=== PATIENT | female | born 1985 | race Caucasian/White ===

== ENCOUNTER 2024-03-25 11:44 | Emergency (ER) | payer OTHER, SELFPAY ==
[2024-03-25 11:53] VITALS: BP 120/84; PULSE 91; TEMP 37.2; O2SAT 99; BMI 29.0
--- NOTE | 2024-03-25 12:33 | ED_ITS ---
HPI HPI - General Adult General Chief complaint: Dental/Oral Stated complaint: FACIAL SWELLING Time Seen by Provider: 03/25/24 11:58 Source: patient Mode of arrival: walk-in Limitations: no limitations History of Present Illness HPI narrative: 38-year-old female to the emergency department chief complaint of dental pain. Patient reports she noticed some swelling on her right lower jawline today. She has had dental pain has been ongoing for several weeks. She was seen by a dentist in [place] and initially had work done however was not completed. She has an appointment for tomorrow. She has been on Augmentin. She did not finish and just restarted it. She denies any fever, sweats, chills. Related Data Home Medications ?Medication ?Instructions ?Recorded ?Confirmed aripiprazole 5 mg tablet 5 mg PO DAILY 03/25/24 03/25/24 cholecalciferol (vitamin D3) 125 125 mcg PO DAILY 03/25/24 03/25/24 mcg (5,000 unit) capsule duloxetine 60 mg capsule,delayed 60 mg PO DAILY 03/25/24 03/25/24 release metformin 500 mg tablet,extended 1,000 mg PO DAILY 03/25/24 03/25/24 release 24 hr Previous Rx's ?Medication ?Instructions ?Recorded clindamycin HCl 150 mg capsule 450 mg (3 x 150 mg) PO Q8H 7 days 03/25/24 #63 caps Allergies Allergy/AdvReac Type Severity Reaction Status Date / Time viloxazine [From Qelbree] Allergy Severe Hives Verified 03/25/24 11:59 Opioid HPI Opioid Management Most Recent Opioid Data: No Data to Display Review of Systems ROS Status of ROS 10 or more systems reviewed and unremark able except as noted in history and below Exam Narrative Exam Narrative: VITALS: I have reviewed the triage vital signs. GENERAL: Well developed, well appearing adult in no acute distress. NEURO: Alert and oriented. Moves all extremities. Face is symmetric and expressive. EYES: PERRL. No scleral icterus or conjunctival injection. No discharge. HENT: Normocephalic, atraumatic. Hearing is grossly intact. Nares grossly patent and without discharge. Mucous membranes moist. Right lower jaw swelling, mild in nature. There is some gingival erythema about tooth number 30. No discrete abscess. No evidence of deep space infection. NECK: No JVD. Patient moves neck without restriction. EXTREMITIES: Symmetric muscle bulk. No joint swelling. No clubbing, cyanosis, or deformity. SKIN: Warm and dry. Normal turgor. No rash or lesions appreciated. PSYCH: Mood, affect, and interaction is appropriate to the setting. Constitutional Vital Signs, click to edit/add: Last Vital Signs Temp 98.9 F 03/25/24 11:53 Pulse 91 H 03/25/24 11:53 Resp 16 03/25/24 11:53 BP 120/84 03/25/24 11:53 Pulse Ox 99 03/25/24 11:53 O2 Del Method Room Air 03/25/24 11:53 Course Vital Signs Vital signs: Vital Signs Temperature 98.9 F 03/25/24 11:53 Pulse Rate 91 H 03/25/24 11:53 Respiratory Rate 16 03/25/24 11:53 Blood Pressure 120/84 03/25/24 11:53 Pulse Oximetry 99 03/25/24 11:53 Oxygen Delivery Method Room Air 03/25/24 11:53 Temperature 98.9 F 03/25/24 11:53 Pulse Rate 91 H 03/25/24 11:53 Respiratory Rate 16 03/25/24 11:53 Blood Pressure 120/84 03/25/24 11:53 Pulse Oximetry 99 03/25/24 11:53 Oxygen Delivery Method Room Air 03/25/24 11:53 Medical Decision Making MDM Narrative Medical decision making narrative: 38-year-old female to the emergency department with chief complaint of dental pain. Vital stable, the patient is afebrile. She denies , declines test. There are some mild gingival erythema surrounding a fractured tooth. There are some mild reactive swelling in the soft tissues. No discrete abscess. Will switch her to clindamycin. Follow-up with dentistry tomorrow. Dose of dexamethasone is given for swelling which is likely reactive. Patient agrees with this plan. Return precautions were discussed. All questions were answered. The patient was discharged home. Discharge Plan Discharge Stand Alone Forms: Portal Instructions Chief Complaint: Dental/Oral Clinical Impression: Pain, dental, Dental infection Patient Disposition: Home, Self-Care Time of Disposition Decision: 12:23 Condition: Good Mode of Transportation: Private Vehicle Prescriptions / Home Meds: New clindamycin HCl 150 mg capsule 450 mg PO Q8H 7 Days Qty: 63 0RF No Action metformin 500 mg tablet extended release 24 hr 1,000 mg PO DAILY duloxetine 60 mg capsule,delayed release(DR/EC) 60 mg PO DAILY cholecalciferol (vitamin D3) 125 mcg (5,000 unit) capsule 125 mcg PO DAILY aripiprazole 5 mg tablet 5 mg PO DAILY Print Language: Mauritanian Instructions: Toothache (ED) Additional Instructions: You need to follow-up with your dentist within the next 72 hours. Referrals: Zeferino Benoit DO [Primary Care Provider] - 1 week
[2024-03-25] MEDS: DEXAMETHASONE SOD PHOS 10 MG/ML VIAL PO (12:44)
== END 2024-03-25 12:48 | disposition home or self-care (01) ==
PROVIDERS: Emergency Provider Student in an Organized Health Care Education/Training Program
DX: K04.7 Periapical abscess without sinus (principal); K08.89 Other specified disorders of teeth and supporting structures
CPT/HCPCS: 99283; J1100

== ENCOUNTER 2024-04-20 08:44 | Emergency (ER) | payer OTHER, SELFPAY ==
[2024-04-20 08:50] VITALS: BP 125/75; PULSE 71; TEMP 36.6; O2SAT 100; BMI 29.1
--- NOTE | 2024-04-20 08:59 | ED.DENTAL1 ---
HPI - Dental/Oral General Chief complaint: Dental/Oral Stated complaint: DENTAL PROBLEMS Time Seen by Provider: 04/20/24 08:51 Source: patient Mode of arrival: walk-in History of Present Illness HPI Narrative: 39-year-old female presents to the emergency department for dental issue. She is complaining of pain and swelling to the right lower jaw. She knows that she has bad teeth and she has been trying to get into the dentist. It became swollen last night. No difficulty breathing or swallowing. The pain is moderate and continuous. Related Data Home Medications ?Medication ?Instructions ?Recorded ?Confirmed aripiprazole 5 mg tablet 5 mg PO DAILY 03/25/24 03/25/24 cholecalciferol (vitamin D3) 125 125 mcg PO DAILY 03/25/24 03/25/24 mcg (5,000 unit) capsule duloxetine 60 mg capsule,delayed 60 mg PO DAILY 03/25/24 03/25/24 release metformin 500 mg tablet,extended 1,000 mg PO DAILY 03/25/24 03/25/24 release 24 hr Previous Rx's ?Medication ?Instructions ?Recorded clindamycin HCl 150 mg capsule 450 mg (3 x 150 mg) PO Q8H 7 days 03/25/24 #63 caps acetaminophen 300 mg-codeine 30 mg 1 tab PO Q6H PRN pain 5 days #20 04/20/24 tablet tabs clindamycin HCl 300 mg capsule 300 mg PO Q6H 10 days #40 caps 04/20/24 Allergies Allergy/AdvReac Type Severity Reaction Status Date / Time viloxazine [From Qelbree] Allergy Severe Hives Verified 03/25/24 11:59 Review of Systems ROS Narrative A ten point review of systems is negative except as noted above. Exam Narrative Exam Narrative: Nurses note and vital signs reviewed and patient is not hypoxic. General: The patient appears well and in no apparent distress. Patient is resting comfortably on cart. Skin: Warm, dry, no pallor noted. There is no rash noted. Head: Normocephalic, atraumatic Eye: Normal conjunctiva, no drainage Ears, Nose, Mouth, and Throat: oral mucosa is moist. Swelling present to right lower jaw. No swelling to the floor of her mouth. No bleeding or pus present. Dental caries noted. Cardiovascular: Regular Rate and Rhythm Respiratory: Patient is in no distress, no accessory muscle use, lungs are clear to auscultation, no wheezing, rales or rhonchi Back: non-tender GI: Soft and nontender Musculoskeletal: No joint swelling Neurological: Awake and alert Psychiatric: Cooperative Constitutional Vital Signs, click to edit/add: Last Vital Signs Temp 97.8 F 04/20/24 08:50 Pulse 71 04/20/24 08:50 Resp 16 04/20/24 08:50 BP 125/75 04/20/24 08:50 Pulse Ox 100 04/20/24 08:50 O2 Del Method Room Air 04/20/24 08:50 Course Vital Signs Vital signs: Vital Signs Temperature 97.8 F 04/20/24 08:50 Pulse Rate 71 04/20/24 08:50 Respiratory Rate 16 04/20/24 08:50 Blood Pressure 125/75 04/20/24 08:50 Pulse Oximetry 100 04/20/24 08:50 Oxygen Delivery Method Room Air 04/20/24 08:50 Temperature 97.8 F 04/20/24 08:50 Pulse Rate 71 04/20/24 08:50 Respiratory Rate 16 04/20/24 08:50 Blood Pressure 125/75 04/20/24 08:50 Pulse Oximetry 100 04/20/24 08:50 Oxygen Delivery Method Room Air 04/20/24 08:50 MDM - Dental/Oral MDM Narrative Medical decision making narrative: She was given IM Ancef and prescribed clindamycin and she will follow-up with her dentist. She was provided Tylenol 3 for pain. Treatment diagnosis and follow-up were discussed with the patient. Differential Diagnosis Differential diagnosis: Likely gingival abscess, dental caries, toothache and dental abscess Discharge Plan Discharge Stand Alone Forms: Portal Instructions Chief Complaint: Dental/Oral Clinical Impression: Dental infection Patient Disposition: Home, Self-Care Time of Disposition Decision: 08:57 Condition: Good Mode of Transportation: Private Vehicle Prescriptions / Home Meds: New clindamycin HCl 300 mg capsule 300 mg PO Q6H 10 Days Qty: 40 0RF acetaminophen-codeine 300-30 mg tablet 1 tab PO Q6H PRN (Reason: pain) 5 Days Qty: 20 0RF No Action metformin 500 mg tablet extended release 24 hr 1,000 mg PO DAILY duloxetine 60 mg capsule,delayed release(DR/EC) 60 mg PO DAILY cholecalciferol (vitamin D3) 125 mcg (5,000 unit) capsule 125 mcg PO DAILY aripiprazole 5 mg tablet 5 mg PO DAILY clindamycin HCl 150 mg capsule 450 mg PO Q8H 7 Days Qty: 63 0RF Print Language: Citizen Of [place] Instructions: Dental Abscess (ED) Referrals: [facility] [Primary Care Provider] - 1 week
[2024-04-20] MEDS: CEFAZOLIN SODIUM 1,000 MG, WATER FOR INJECTION,STERILE 2.5 ML IM (09:20)
== END 2024-04-20 09:25 | disposition home or self-care (01) ==
PROVIDERS: Emergency Provider Emergency Medicine
DX: K04.7 Periapical abscess without sinus (principal)
CPT/HCPCS: 99283; J0690

== ENCOUNTER 2025-04-01 19:43 | Outpatient (REF) | payer OTHER, SELFPAY ==
--- OUTSIDE RECORDS SUMMARY | 2024-05-02 11:45 | XMS_ITS ---
Author Organization [facility] Address [address] [place] [address] Care Team Providers Care Heat Treater Apprentice Name Role Phone Jade Regalado Primary Care Provider Kailyn Dugan [phone] Encounters Encounter Location Date Provider Diagnosis [facility] [address] [facility] [place] [place] [address] 05/02/2024 Kailyn Dugan Plan Of Treatment No Information Progress Notes * GOLDEN HOYTOB:[birth year] (39 yo F)Acc No.[id number]:05/02/2024 Patient: NATALIIA ZAMORA Provider: Thee Dugan :1985 A ge:39 Y S ex:Female Date:05/02/2024 Address:[address] [place], [place] [id number] Pcp:Jade Regalado Subjective: * Chief Complaints: * * Medical History: Objective: * Vitals: Assessment: Plan: * Treatment: * Images: * Electronic signature of Naveen Dugan on 04/01/2025 at 02:44 PM EDT Sign off status: Pending * Provider: Thee Dugan Date: 05/02/2024 Generated for Mariyai ng/Fabriandag/eTransmitting on: 04/01/2025 02:44 PM EDT
--- OUTSIDE RECORDS SUMMARY | 2024-05-23 11:20 | XMS_ITS ---
Author Organization [facility] Address [address] [place] [address] Care Team Providers Care Slag Dumper Name Role Phone Jade Regalado Primary Care Provider Dr. Mo Jones [facility] [phone] REASON FOR VISIT EXAM Encounters Encounter Location Date Provider Diagnosis [facility] [address] [facility] [place] [address] 05/23/2024 Mo Jones Plan Of Treatment No Information Progress Notes * GOLDEN HOYTOB:[birth year] (39 yo F)Acc No.[id number]:05/23/2024 Patient: NATALIIA ZAMORA Provider: Juan F Jones DDS :1985 A ge:39 Y S ex:Female Date:05/23/2024 Address:[address] [place], [place] [phone] Pcp:Jade Regalado Subjective: * Chief Complaints: * 1 . EXAM. * Medical History: Objective: * Vitals: Assessment: Plan: * Treatment: * Images: * Electronic signature of Dr. Mo Jones , DMD on 04/01/2025 at 02:44 PM EDT Sign off status: Pending * Provider: Juan F Jones DDS Date: 0 05/23/2024 Generated for Ratna chaparro/Sheyla/eTransmitting on: 04/01/2025 02:44 PM EDT
--- OUTSIDE RECORDS SUMMARY | 2025-04-01 15:00 | XMS_ITS | Encounter Summary ---
Author Organization [facility] Address [address] [place] [address] Care Team Providers Care Entry Level Assistant Manager Name Role Phone Unavailable Primary Care Provider Unavailabl e Reason for Referral * Medications - Closed Specialty Diagnoses / Procedures Referred By Jonathan napier Referred To Contact Diagnoses Acne, unspecified acne type Karli Luis PA [address] [place] [address] [place] [address] Phone: tel: fax: Referral ID Status Reason Start Date Expiration Date Visits Re quested Visits Authorized [id number] Closed 1 1 Reason for Visit * Reason Comments Well Women Visit Encounter Details Date Type Department Care Team (Late st Contact Info) Description 04/01/2025 3:00 PM EDT Office Visit [facility] [address] [place] [address] Karli Luis PA [address] [place] [address] [place] [address] Acne, unspecified acne type (Primary Dx); Well woman exam with routine gynecological exam; Breast cancer screening by mammogram Social History Tobacco Use Types Packs/Day Years Used Date Smoking Tobacco: Never Assessed Comments Unknown Sex and Gender Information Value Date Recorded Sex Assigned at Not on file Legal Sex Female 8:28 PM EDT Gender Identity Not on file Sexual Orientation Not on file documented as of this encounter Last Filed Vital Signs Vital Sign Reading Time Taken Comments Blood Pressure 120/74 04/01/2025 2:57 PM EDT Pulse - - Temperature - - Respiratory Rate - - Oxygen Saturation - - Inhaled Oxygen Concentration - - Weight 79.6 kg (175 lb 6.4 oz) 04/01/2025 2:57 P M EDT Height - - Body Mass Index - - documented in this encounter Progress Notes * JENNA Musa - 04/01/2025 3:00 PM EDT Reason for Appointment: Patient ID: Comfort Renteria is a 39 y.o. female who presents for Well Women Visit Patient presents today for Annual Exam. MEDICATIONS Current Outpatient Medications Medication Instructions amphetamine-dextroamphetamine XR (Adderall XR) 20 MG 24 hr capsule 20 mg, Every morning ARIPiprazole (ABILIFY) 5 mg, Daily escitalopram (LEXAPRO) 10 mg, Every morning ALLERGIES No Known Allergies PROBLEMS Active Ambulatory Problems Diagnosis Date Noted No Active Ambulatory Problems Resolved Ambulatory Problems Diagnosis Date Noted No Resolved Ambulatory Problems Past Medical History: Diagnosis Date Miscarriage ([facility] HISTORY PAST MEDICAL HISTORY SOCIAL HISTORY Past Medical History: Diagnosis Date Miscarriage ([facility]) Social History Tobacco Use Smoking status: Not on file Smokeless tobacco: Not on file Substance Use Topics Alcohol use: Not on file Drug use: Not on file FAMILY HISTORY No family history on file. SURGICAL HISTORY Past Surgical History: Procedure Laterality Date D&C FIRST TRIMESTER / TX INCOMPLETE / MISSED / SEPTIC / INDUCED REVIEW OF SYSTEMS Review of Systems: Review of Systems Constitutional: Negative. HENT: Negative. Eyes: Negative. Respiratory: Negative. Cardiovascular: Negative. Gastrointestinal: Negative. Genitourinary: Negative. Musculoskeletal: Negative. Skin: Negative. Neurological: Negative. All other systems reviewed and are negative. Hematological: Negative. Endocrine: Negative. Allergic/Immunologic: Negative. OBJECTIVE Objective: Physical Exam Constitutional: Appearance: Normal appearance. Genitourinary: Right Adnexa: not tender and no mass present. Left Adnexa: not tender and no mass present. No cervical discharge. Breasts: Breasts are soft. Right: Normal. Left: Normal. HENT: Head: Normocephalic. Nose: Nose normal. Mouth/Throat: Mouth: Mucous membranes are moist. Cardiovascular: Rate and Rhythm: Normal rate. Pulmonary: Effort: Pulmonary effort is normal. Abdominal: General: Bowel sounds are normal. Palpations: Abdomen is soft. Musculoskeletal: General: Normal range of motion. Cervical back: Normal range of motion. Neurological: General: No focal deficit present. Mental Status: She is alert. Skin: General: Skin is warm and dry. Findings: Rash present. Comments: Cystic acne on face Psychiatric: Mood and Affect: Mood normal. Vitals and nursing note reviewed. Exam conducted with a ice platform supervisor present. Vitals: There is no height or weight on file to calculate BMI. BP: 120/74 No LMP recorded (within months). ASSESSMENT & PLAN ICD-10-CM 1. Well woman exam with routine gynecological exam Z01.419 THIN PREP TIS PAP AND HR HPV DNA 2. Breast cancer screening by mammogram Z12.31 Bilateral screening mammogram Bilateral screening mammogram Annual Exam: Patient presents today for an annual exam. Patient states she is doing well and has no complaints. Pap was obtained without difficulty. Pt states she has acne from respirator at work, we will send inkeflex and then epiduo to help alleviate symptoms Orders Placed This Encounter Procedures Bilateral screening mammogram Follow Up: Patient is to return in one year for annual unless needed otherwise. Documented by JENNA Musa on behalf of: JENNA Musa documented in this encounter Plan of Treatment Upcoming Encounters Date Type Department Care Team (Late st Contact Info) Description 04/07/2026 3:00 PM EDT Procedure Visit [facility] [address] [facility] [place] [address] Karli Luis PA [address] [facility] [place] [address] Scheduled Orders Name Type Priority Associated Diagnoses Orde r Schedule Bilateral screening mammogram Imaging Routine Breast cancer screening by mammogram Expected: 04/01/2025 (Approximate), Expires: 06/02/2026 THIN PREP TIS PAP AND HR HPV DNA Pathology and Cytology Routine Well woman exam with routine gynecological exam Ordered: 04/01/2025 documented as of this encounter Visit Diagnoses Diagnosis Acne, unspecified acne type- Primary Well woman exam with routine gynecological exam Routine gynecological examination Breast cancer screening by mammogram documented in this encounter
--- OUTSIDE RECORDS SUMMARY | 2025-04-01 19:47 | XMS_ITS | Encounter Summary ---
Author Organization [facility] Address [address] [facility] [place] [address] Care Team Providers Care Cloth Picker Name Role Phone Unavailable Primary Care Provider Unavailabl e Encounter Details Date Type Department Care Team (Late st Contact Info) Description 04/01/2025 Telephone [facility] [address] [place] [address] Karlee Quintanilla MA [address] [facility] [place] [address] Social History Tobacco Use Types Packs/Day Years Used Date Smoking Tobacco: Never Assessed Comments Unknown Sex and Gender Information Value Date Recorded Sex Assigned at Not on file Legal Sex Female 8:28 PM EDT Gender Identity Not on file Sexual Orientation Not on file documented as of this encounter Miscellaneous Notes * Telephone Encounter - Karlee Quintanilla MA - 04/01/2025 3:54 PM EDT Tiffanie called and advised the keflex sent in for 14 days does not match the quantity. The Quantitywas for 21 and its stated in direction TID for 14 days. Pharmacist asking for a new rx sent in please. I sent in the new Keflex rx for TID x 14 days total of 42 tablets. documented in this encounter Plan of Treatment Upcoming Encounters Date Type Department Care Team (Late st Contact Info) Description 04/07/2026 3:00 PM EDT Procedure Visit [facility] [address] [facility] [address] Karli Luis PA [address] [facility] [place] [address] documented as of this encounter Visit Diagnoses Diagnosis Acne, unspecified acne type documented in this encounter
--- OUTSIDE RECORDS SUMMARY | 2025-04-01 19:47 | XMS_ITS | Clinical Summary ---
Author Organization [employer] [facility] tem Address [id number] [address] [place] [address] Care Team Providers Care Statistical Machine Servicer Name Role Phone Services, [facility] Primary Care Provider Allergies No known active allergies Medications * This document contains information received from the source organization and may not represent a complete record from that organization. fluticasone (FLONASE) 50 mcg/actuation nasal spray 8 Active amphetamine-dextro amphetamine XR (ADDERALL XR) 20 mg 24 hr capsuleIndications :ADHD (attention deficit hyperactivity disorder), inattentive type Take 1 capsule (20 mg total) by mouth daily Earliest Fill Date: 08/24/18. Max Daily Amount: 20 mg 30 capsule 8 Active Active Problems Problem Noted Date Diagnosed Date Major depressive disorder, recurrent episode, mo derate 12/12/2017 ADHD (attention deficit hype ractivity disorder), inattentive type 12/12/2017 Social History Tobacco Use Types Packs/Day Years Used Date Smoking Tobacco: Never Assessed Childcare Answer Date Recorded Childcare Unknown 02/21/2019 Employment Answer Date Recorded Employment Unknown 02/21/2019 Purpose - Life Answer Date Recorded Purpose and direction in life Unknown Comments Unknown Sex and Gender Information Value Date Recorded Sex Assigned at Not on file Legal Sex Female 11:22 AM EDT Gender Identity Not on file Sexual Orientation Not on file Plan of Treatment Health Maintenance Due Date Last Done Comments Depression Screening 1996 Tobacco Screening 1996 Adult BMI Screening 2002 DTaP,Tdap and Td Vaccines (1 - Tdap) 2003 Pap Smear 2005 Influenza Vaccine 05/13/2025 08/20/2018 Medical Devices Not on file Insurance [employer] Care Teams Statistical Machine Servicer Relationship Specialty Start Date End Date Services, [facility] [address] [place] [place] PCP - General Family Medicine 11/16/17
--- OUTSIDE RECORDS SUMMARY | 2025-04-01 19:47 | XMS_ITS | Clinical Summary ---
Author Organization [facility] Address [address] [place] [address] Care Team Providers Care Meeting/Event Planner Name Role Phone Unavailable Primary Care Provider Unavailabl e Allergies No known active allergies Medications escitalopram (Lexapro) 10 MG tablet Take 10 mg by mouth in the morning. 02/19/20 25 Active amphetamine-dextr oamphetamine XR (Adderall XR) 20 MG 24 hr capsule Take 20 mg by mouth in the morning. 03/25/20 25 Active ARIPiprazole (Abilify) 5 MG tablet Take 5 mg by mouth Daily 01/24/20 25 Active Adapalene-Benzoyl Peroxide 0.1-2.5 % gelIndications:Ac ne, unspecified acne type Apply pea-size amount to T-zone, chin and problem areas nightly. 45 g 1 04/01/20 25 Active cephalexin (Keflex) 500 MG capsuleIndication s:Acne, unspecified acne type Take 1 capsule (500 mg) by mouth in the morning and 1 capsule (500 mg) in the evening and 1 capsule (500 mg) before bedtime. Do all this for 14 days. 42 capsule 04/01/20 25 025 Active cephalexin (Keflex) 500 MG capsuleIndication s:Well woman exam with routine gynecological exam Take 1 capsule (500 mg) by mouth in the morning and 1 capsule (500 mg) in the evening and 1 capsule (500 mg) before bedtime. Do all this for 14 days. 20 capsule 04/01/20 25 025 Discontinued Encounters Date Type Department Care Team Description 04/01/2025 3:00 PM EDT Office Visit [facility] [address] [facility] [place] [address] Karli Luis PA Acne, unspecified acne type (Primary Dx); Well woman exam with routine gynecological exam; Breast cancer screening by mammogram 04/01/2025 Telephone [facility] [address] [place], [place] [address] [address] Karlee Quintanilla SHAHBAZ 04/01/2025 Bamboo flowsheet [facility] [address] [place] [address] Karli Luis PA from Last 3 Months Social History Tobacco Use Types Packs/Day Years Used Date Smoking Tobacco: Never Assessed Comments Unknown Sex and Gender Information Value Date Recorded Sex Assigned at Not on file Legal Sex Female 8:28 PM EDT Gender Identity Not on file Sexual Orientation Not on file Last Filed Vital Signs Vital Sign Reading Time Taken Comments Blood Pressure 120/74 04/01/2025 2:57 PM EDT Pulse - - Temperature - - Respiratory Rate - - Oxygen Saturation - - Inhaled Oxygen Concentration - - Weight 79.6 kg (175 lb 6.4 oz) 04/01/2025 2:57 P M EDT Height - - Body Mass Index - - Plan of Treatment Upcoming Encounters Date Type Department Care Team (Late st Contact Info) Description 04/07/2026 3:00 PM EDT Procedure Visit [facility] [address] [place] [address] Karli Luis PA [address] [place] [address] [place] [address] Insurance [employer]
--- OUTSIDE RECORDS SUMMARY | 2025-04-01 19:47 | XMS_ITS | CCD ---
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 Name Role Phone BIA, DR OCHOA Consulting Unavailable BIA, DR OCHOA Admitting Unavailable BIA, DR OCHOA Attending Unavailable BIA, DR OCHOA Primary Care Unavailable BIA, DR OCHOA Admitting Unavailable BIA, DR OCHOA Attending Unavailable BIA, DR OCHOA Consulting Unavailable BIA, DR OCHOA Primary Care Unavailable BIA, DR OCHOA Admitting Unavailable BIA, DR OCHOA Attending Unavailable PAUL CHAPA Consulting Unavailable BIA, DR OCHOA Consulting Unavailable BIA, DR OCHOA Admitting Unavailable BIA, DR OCHOA Attending Unavailable ZIEBER, DR LEXI Leyva Consulting Unavailable Mattie New Unavailable Horace Sauceda Unavailable Philly Dennison Attending Unavailable Philly Dennison Primary Care Unavailable Philly Dennison Admitting Unavailable Unavailable Primary Care Provider Unavailabl e Medications Current Medications Medication Drug Class(es) Dates Sig (Normalized) Sig (Original) adapalene 0.001 mg/mg / benzoyl peroxide 0.025 mg/mg topical gel (2 sources) Retinoid Start: 04-01-2025 Adapalene-Benzoyl Peroxide 0.1-2.5 % gel Indications: Acne, unspecified acne type Apply pea-size amount to T-zone, chin and problem areas nightly. 45 g 1 04/01/2025 Active 24 hr amphetamine aspartate 5 mg / amphetamine sulfate 5 mg / dextroamphetamine saccharate 5 mg / dextroamphetamine sulfate 5 mg extended release oral capsule (15 sources) Central Nervous System Stimulant Start: 03-25-2025 take 1 capsule by mouth in the morning, then take 1 capsule by mouth every twenty-four hours amphetamine-dextr oamphetamine XR (Adderall XR) 20 MG 24 hr capsule Take 20 mg by mouth in the morning. 03/25/2025 Active take 1 capsule by mo uth every twenty-four hours Adderall XR 15 MG 1 capsule in the morning Orally Once a day Active ARIPiprazole 5 mg oral tablet (15 sources) Atypical Antipsychotic Start: 01-23-2025 take 1 tablet by mouth once daily ARIPiprazole (Abilify) 5 MG tablet Take 5 mg by mouth Daily 01/23/2025 Active take 1 tablet by janae every twenty-four hours Abilify 5 MG 1 tablet Orally Once a day Active cephalexin 500 mg oral capsule (2 sources) Cephalosporin Antibacterial Start: 04-01-2025 End: 04-15-2025 take 1 capsule by mouth in the morning, then take 1 capsule by mouth in the evening, then take 1 capsule by mouth at bedtime cephalexin (Keflex) 500 MG capsule Indications: Well woman exam with routine gynecological exam Take 1 capsule (500 mg) by mouth in the morning and 1 capsule (500 mg) in the evening and 1 capsule (500 mg) before bedtime. Do all this for 14 days. 20 capsule 04/01/2025 04/15/2025 Active DULoxetine 60 mg delayed release oral capsule (13 sources) Serotonin and Norepinephrine Reuptake Inhibitor take 1 capsule by mouth every twenty-four hours Cymbalta 60 MG 1 capsule Orally Once a day Active escitalopram 10 mg oral tablet (2 sources) Serotonin Reuptake Inhibitor Start: 02-18-2025 take 1 tablet by mouth in the morning escitalopram (Lexapro) 10 MG tablet Take 10 mg by mouth in the morning. 02/18/2025 Active ferrous sulfate 325 mg oral tablet (11 sources) take 1 tablet by mouth every twenty-four hours Iron 325 (65 Fe) MG 1 tablet Orally Once a day Active 3 ml liraglutide 6 mg/ml pen injector (8 sources) GLP-1 Receptor Agonist Start: 02-09-2022 inject 1.8 mg by subcutaneous injection once daily Victoza 18 MG/3ML 1.8 mg Subcutaneous daily for 30 day(s) January, Active Start: 01-19-2022 Saxenda 18 MG/ 3ML 0.6 mg and may increase to 1.2 mg Subcutaneous once daily for 30 day(s) January, Active 24 hr metFORMIN hydrochloride 500 mg extended release oral tablet (10 sources) Biguanide Start: 10-29-2021 take 1 tablet by mouth every twenty-four hours metFORMIN HCl ER 500 MG 1 tablet with breakfast Orally Once a day for 30 day(s) Oct, Active Multivitamin preparation (11 sources) take 1 tablet by mouth once daily Multivitamin - 1 tablet Orally Once a day Active Completed/Discontinued Medications Medication Drug Class(es) Dates Sig (Normalized) Sig (Original) Vitamin B12 1000 MCG (11 sources) take 1 tablet by jaane once daily Vitamin B12 1000 MCG 1 tablet Orally Once a day for 30 day(s) Not-Taking take 1 tablet by mouth once edmar y Vitamin B12 1000 MCG 1 tablet Orally Once a day for 30 day(s) Active Problems Active Problems Problem Classification Problem Date Documented Date Episodic/Chronic Anxiety disorders (19 sources) Mixed anxiety and depressive disorder; Translations: [Other specified anxiety disorders] Onset: 10-29-2021 Resolved: 05-19-2022 Chronic Attention-deficit, conduct, and disruptive behavior disorders (13 sources) Attention deficit hyperactivity disorder; Translations: [Attention-deficit hyperactivity disorder, unspecified type] Chronic Attention-deficit, conduct, and disruptive behavior disorders (6 sources) Attention-deficit hyperactivity disorder, unspecified type Onset: 10-29-2021 Resolved: 05-19-2022 Chronic Deficiency and other anemia (7 sources) Anemia, unspecified; Translations: [ANEMIA UNSPECIFIED] Onset: 07-30-2021 Resolved: 05-19-2022 Episodic Deficiency and other anemia (11 sources) Anemia; Translations: [Anemia, unspecified] Episodic Disorders of lipid metabolism (13 sources) Hypercholesterolemia; Translations: [Pure hypercholesterolemia, unspecified] Onset: 01-19-2022 Resolved: 05-19-2022 Chronic Immunizations and screening for infectious disease (1 source) Encounter for screening for human papillomavirus (HPV); Translations: [ENC SCREENING HUMAN PAPILLOMAVIRUS] Onset: 06-11-2021 Episodic Malaise and fatigue (17 sources) Other fatigue; Translations: [Fatigue] Onset: 10-29-2021 Resolved: 05-19-2022 Episodic Menstrual disorders (5 sources) Excessive and frequent menstruation with regular cycle; Translations: [EXCESS FREQ MENSTRUATION W/REG CYCL] Onset: 06-01-2021 Chronic Other aftercare (1 source) Other mcc (current) drug therapy; Translations: [OTH INTERMEDIATE CURRENT DRUG THERAPY] Onset: 07-30-2021 Episodic Other lower respiratory disease (6 sources) Snoring Onset: 10-29-2021 Resolved: 05-19-2022 Episodic Other lower respiratory disease (11 sources) Snoring; Translations: [Snoring] Episodic Other nutritional; endocrine; and metabolic disorders (9 sources) Obesity, unspecified; Translations: [OBESITY UNSPECIFIED] Onset: 07-30-2021 Resolved: 05-19-2022 Chronic Other nutritional; endocrine; and metabolic disorders (1 source) Body mass index (BMI) 34.0-34.9, adult; Translations: [BODY MASS INDEX BMI 34.0-34.9 ADULT] Onset: 07-30-2021 Chronic Other nutritional; endocrine; and metabolic disorders (20 sources) Obesity; Translations: [Obesity, unspecified] Chronic Other nutritional; endocrine; and metabolic disorders (9 sources) Body mass index 40+ - severely obese; Translations: [Body mass index (BMI) 40.0-44.9, adult] Chronic Other nutritional; endocrine; and metabolic disorders (9 sources) Obese class II; Translations: [Body mass index (BMI) 36.0-36.9, adult] Chronic Other nutritional; endocrine; and metabolic disorders (1 source) Body mass index (BMI) 36.0-36.9, adult Onset: 01-26-2022 Resolved: 01-26-2022 Chronic Other screening for suspected conditions (not mental disorders or infectious disease) (6 sources) Encounter for screening for malignant neoplasm of cervix; Translations: [Patient encounter status] Onset: 05-13-2021 Episodic Other skin disorders (4 sources) Acne; Translations: [Acne, unspecified] 04-01-2025 Episodic Residual codes; unclassified (6 sources) Other specified health status Onset: 10-29-2021 Resolved: 05-19-2022 Episodic Residual codes; unclassified (6 sources) Tobacco use Onset: 10-29-2021 Resolved: 05-19-2022 Episodic Residual codes; unclassified (11 sources) Vegetarian diet; Translations: [Other specified health status] Episodic Residual codes; unclassified (11 sources) Nicotine user; Translations: [Tobacco use] Episodic Substance-related disorders (1 source) Cannabis use, unspecified, uncomplicated; Translations: [CANNABIS USE UNS UNCOMPLICATED] Onset: 07-30-2021 Episodic Unclassified (1 source) Dietary counseling and surveillance; Translations: [Dietary counseling and surveillance] Onset: 07-21-2022 Past or Other Problems Problem Classification Problem Date Documented Da te Episodic/Chronic Other nutritional; endocrine; and metabolic disorders (1 source) Abnormal weight gain Onset: 10-29-2021 Resolved: 10-29-2021 Episodic Results Test Name Value Interpretation Reference Range Facil ity CBC AUTO DIFFon 07-24-2021 BASO # 0.0 103/ul Normal 0.0-0.1 [facility] Comment on above: Performed By: #### C BC #### [facility] [address] [place] [address] Dr. Saji Pacheco Basophils/100 WBC (Bld) 0.4 % Normal 0.2-2.0 [facility] Comment on above: Performed By: #### C BC #### [facility] [address] [place] [address] Dr. Saji Pacheco EO # 0.2 103/ul Normal 0.0-0.7 [facility] Comment on above: Performed By: #### C BC #### [facility] [address] [place] [address] Dr. Saji Pacheco Eosinophils/100 WBC (Bld) 3.7 % Normal 0.9-7.0 [facility] Comment on above: Performed By: #### C BC #### [facility] [address] [place] [address] Dr. Saji Pacheco Erythrocyte distribution width (RBC) [Ratio] 15.7 % Critically high 11.0-15.0 [facility] Comment on above: Performed By: #### C BC #### [facility] [address] [place] [address] Dr. Saji Pacheco Hematocrit (Bld) [Volume fraction] 37.0 % Normal 36.0-48.0 [facility] Comment on above: Performed By: #### C BC #### [facility] [address] [place] [address] Dr. Saji Pacheco Hemoglobin (Bld) [Mass/Vol] 11.3 g/dL Critically low 12.0-16.0 [facility] Comment on above: Performed By: #### C BC #### [facility] [address] [place] [address] Dr. Saji Pacheco IG # 0.01 10e3/ul Normal 0.00-0.03 [facility] Comment on above: Performed By: #### C BC #### [facility] [address] [place] [address] Dr. Saji Pacheco IG % 0.2 % Normal 0.0-0.5 [facility] Comment on above: Performed By: #### C BC #### [facility] [address] [place] [address] Dr. Saji Pacheco LYMPH # 1.8 103/ul Normal 1.2-3.8 [facility] Comment on above: Performed By: #### C BC #### [facility] [address] [place] [address] Dr. Saji Pacheco Lymphocytes/100 WBC (Bld) 30.9 % Normal 20.5-60.0 [facility] Comment on above: Performed By: #### C BC #### [facility] [address] [place] [address] Dr. Saji Pacheco MANUAL DIFF REQ NO Normal [facility] Comment on above: Performed By: #### C BC #### [facility] [address] [place] [address] Dr. Saji Pacheco MCH (RBC) [Entitic mass] 25.3 pg Critically low 26.7-34.0 [facility] Comment on above: Performed By: #### C BC #### [facility] [address] [place] [address] Dr. Saji Pacheco MCHC (RBC) [Mass/Vol] 30.5 g/dL Normal 29.9-35.2 [facility] Comment on above: Performed By: #### C BC #### [facility] [address] [place] [address] Dr. Saji Pacheco MCV (RBC) [Entitic vol] 83.0 fL Normal 81.0-99.0 [facility] Comment on above: Performed By: #### C BC #### [facility] [address] [place] [address] Dr. Saji Pacheco MONO # 0.6 103/ul Normal 0.3-0.8 [facility] Comment on above: Performed By: #### C BC #### [facility] [address] [address] [address] Saji Pacheco Monocytes/100 WBC (Bld) 11.3 % Normal 1.7-12.0 [facility] Comment on above: Performed By: #### C BC #### [facility] [address] [place] [address] Dr. Saji Pacheco NEUT # 3.0 103/ul Normal 1.4-6.5 [facility] Comment on above: Performed By: #### C BC #### [facility] [address] [place] [address] Dr. Saji Pacheco Neutrophils/100 WBC (Bld) 53.5 % Normal 43.0-75.0 [facility] Comment on above: Performed By: #### C BC #### [facility] [address] [place] [address] Dr. Saji Pacheco Platelet mean volume (Bld) [Entitic vol] 8.9 fL Critically low 9.5-13.5 [facility] Comment on above: Performed By: #### C BC #### [facility] [address] [place] [address] Dr. Saji Pacheco PLT 361 103/ul Normal 150-450 [facility] Comment on above: Performed By: #### C BC #### [facility] [address] [place] [address] Dr. Saji Pacheco RBC 4.46 106/ul Normal 4.20-5.40 [facility] Comment on above: Performed By: #### C BC #### [facility] [address] [place] [address] Dr. Saji Pacheco WBC 5.7 103/ul Normal 4.0-11.0 [facility] Comment on above: Performed By: #### C BC #### [facility] [address] [place], [place] [address] Dr. Saji Pacheco PREG QUANT HCGon 07-24-2021 HCG QUANT 1 mIU/mL Normal [facility] Comment on above: Performed By: #### P REGQNT #### [facility] [address] [place], [place] [address] Dr. Saji Pacheco HCG RANGE SEE BELOW Normal [facility] Comment on above: Result Comment: 5-50 0-1 WEEK 40-300 1-2 WEEKS 100-1,000 2-3 WEEKS 500-6,000 3-4 WEEKS 5,000-200,000 1-2 MONTHS 10,000-100,000 2-3 MONTHS 3,000-50,000 2ND TRIMESTER 1,000-50,000 3RD TRIMESTER Performed By: #### P REGQNT #### [facility] [address] [place], [place] [address] Dr. Saji Pacheco Covid-19 PCR (CVDTB)on SARS-CoV-2 (COVID-19) RNA VEGA+probe Ql (Unsp spec) Not detected Normal NOT DETECTED [facility] Comment on above: Result Comment: This test is not yet approved or cleared by the [place] FDA. When there are no FDA-approved or cleared tests available, and other criteria are met, FDA can make tests available under an emergency access mechanism called an Emergency Use Authorization (EUA). The EUA for this test is supported by the [place] of Health and Human Service's (HHS's) declaration that circumstances exist to justify the emergency use of in vitro diagnostics for the detection and/or diagnosis of the virus that causes COVID-19. This EUA will remain in effect (meaning this test can be used) for the duration of the COVID-19 declaration justifying emergency of IVDs, unless it is terminated or revoked by FDA (after which the test may no longer be used). When diagnostic testing is negative, the possibility of a false negative should be considered in the context of a patient's recent exposures and the presence of clinical signs and symptoms consistent with SARS-CoV-2. Performed By: #### C VDTBH ####[facility] [id number] [place], [place] [address]JiJessica Pacheco US PELVIS AND TRANSVAGon US PELVIS AND TRANSVAG EXAMINATION: US PELVIS AND TRANSVAG HISTORY: Excessive and frequent menstruation COMPARISON: No relevant comparison available. TECHNIQUE: Transabdominal and transvaginal sonographic examination. FINDINGS: UTERUS: Normal size and appearance. Uterus size: 9.0 x 5.0 x 7.5 cm ENDOMETRIUM: Thickened but homogeneous echotexture. Endometrial thickness: 19 mm RIGHT OVARY: Normal size and appearance. Duplex Doppler demonstrates normal waveform and flow; resistive index 0.62. Ovary size: 2.4 x 1.2 x 2.7 cm LEFT OVARY: Normal size and appearance. Duplex Doppler demonstrates normal waveform and flow; resistive index 0.48. Ovary size: 3.5 x 2.2 x 3.0 cm CUL-DE-SAC: Unremarkable. No significant free fluid. BLADDER: Unremarkable. OTHER: None. IMPRESSION: 1. Homogeneous but abnormally thickened endometrium; possible endometrial hyperplasia. Electronically authenticated by: LEXI IRELAND Date: 2021-05-21 08:03 Normal [facility] CBC AUTO DIFFon 05-20-2021 BASO # 0.1 103/ul Normal 0.0-0.1 [facility] Comment on above: Performed By: #### C BC #### [facility] [address] [place] [id number] Jhoan Noemí Basophils/100 WBC (Bld) 0.5 % Normal 0.2-2.0 [facility] Comment on above: Performed By: #### C BC #### [facility] [address] [place] [address] Jhoan Noemí EO # 0.1 103/ul Normal 0.0-0.7 [facility] Comment on above: Performed By: #### C BC #### [facility] [address] [place], [place] [address] Jhoan Noemí Eosinophils/100 WBC (Bld) 0.9 % Normal 0.9-7.0 [facility] Comment on above: Performed By: #### C BC #### [facility] [address] [place], [place] [address] Jhoan Noemí Erythrocyte distribution width (RBC) [Ratio] 14.5 % Normal 11.0-15.0 [facility] Comment on above: Performed By: #### C BC #### [facility] [address] [place] [address] Jhoan Dowd Hematocrit (Bld) [Volume fraction] 33.6 % Critically low 36.0-48.0 [facility] Comment on above: Performed By: #### C BC #### [facility] [address] [place] [address] Jhoan Dowd Hemoglobin (Bld) [Mass/Vol] 10.7 g/dL Critically low 12.0-16.0 [facility] Comment on above: Performed By: #### C BC #### [facility] [address] [place] [address] Jhoan Dowd IG # 0.02 10e3/ul Normal 0.00-0.03 [facility] Comment on above: Performed By: #### C BC #### [facility] [address] [place] [address] Jhoan Dowd IG % 0.2 % Normal 0.0-0.5 [facility] Comment on above: Performed By: #### C BC #### [facility] [address] [place] [address] Jhoan Dowd LYMPH # 2.9 103/ul Normal 1.2-3.8 [facility] Comment on above: Performed By: #### C BC #### [facility] [address] [place] [address] Jhoan Dowd Lymphocytes/100 WBC (Bld) 31.0 % Normal 20.5-60.0 [facility] Comment on above: Performed By: #### C BC #### [facility] [address] [place] [address] Jhoan Dowd MANUAL DIFF REQ NO Normal [facility] Comment on above: Performed By: #### C BC #### [facility] [address] [place] [address] Jhoan Dowd MCH (RBC) [Entitic mass] 25.3 pg Critically low 26.7-34.0 [facility] Comment on above: Performed By: #### C BC #### [facility] [address] [place], [place] [address] Jhoanmonica Dowd MCHC (RBC) [Mass/Vol] 31.8 g/dL Normal 29.9-35.2 [facility] Comment on above: Performed By: #### C BC #### [facility] [address] [id number] Jhoan Noemí MCV (RBC) [Entitic vol] 79.4 fL Critically low 81.0-99.0 [facility] Comment on above: Performed By: #### C BC #### [facility] [address] [id number] Jhoan Noemí MONO # 0.7 103/ul Normal 0.3-0.8 [facility] Comment on above: Performed By: #### C BC #### [facility] [address] [id number] Jhoan Noemí Monocytes/100 WBC (Bld) 7.1 % Normal 1.7-12.0 [facility] Comment on above: Performed By: #### C BC #### [facility] [address] [id number] Jhoan Noemí NEUT # 5.7 103/ul Normal 1.4-6.5 [facility] Comment on above: Performed By: #### C BC #### [facility] [address] [place], [place] [address] Jhoan Noemí Neutrophils/100 WBC (Bld) 60.3 % Normal 43.0-75.0 [facility] Comment on above: Performed By: #### C BC #### [facility] [address] [place], [place] [address] Jhoan Noemí Platelet mean volume (Bld) [Entitic vol] 9.3 fL Critically low 9.5-13.5 [facility] Comment on above: Performed By: #### C BC #### [facility] [address] [id number] Jhoan Noemí PLT 332 103/ul Normal 150-450 [facility] Comment on above: Performed By: #### C BC #### [facility] [address] [place] [address] Jhoanmonica Dowd RBC 4.23 106/ul Normal 4.20-5.40 [facility] Comment on above: Performed By: #### C BC #### [facility] [address] [place] [address] Jhoan Dowd WBC 9.4 103/ul Normal 4.0-11.0 [facility] Comment on above: Performed By: #### C BC #### [facility] [address] [place], [place] [id number] Jhoan Dowd PREG QUANT HCGon 05-20-2021 HCG QUANT <1 Normal [facility] Comment on above: Performed By: #### P REGQNT, TSH #### [facility] [address] [place] [address] Jhoan Noemí HCG RANGE SEE BELOW Normal [facility] Comment on above: Result Comment: 5-50 0-1 WEEK 40-300 1-2 WEEKS 100-1,000 2-3 WEEKS 500-6,000 3-4 WEEKS 5,000-200,000 1-2 MONTHS 10,000-100,000 2-3 MONTHS 3,000-50,000 2ND TRIMESTER 1,000-50,000 3RD TRIMESTER Performed By: #### P REGQNT, TSH #### [facility] [address] [place] [address] Jhoanmonica Fontanezen PROTIMEon 05-20-2021 INR Coag (PPP) [Relative time] 0.94 {INR} Normal [facility] Comment on above: Performed By: #### P TT, PT #### [facility] [address] [place], [place] [id number] Jhoanmonica Dowd INR GUIDELINES SEE BELOW Normal [facility] Comment on above: Result Comment: MIKE RED INR: 2.0 - 3.0 CONDITIONS NOT LISTED BELOW 2.5 - 3.5 FOR PROSTHETIC HEART VALVE REPLACEMENT 2.5 - 3.5 RECURRENT THROMBOSIS Performed By: #### P TT, PT #### [facility] [address] [place] [address] Jhoanmonica Dowd PT Coag (PPP) [Time] 10.2 s Normal 9.0-11.6 [facility] Comment on above: Performed By: #### P TT, PT #### [facility] [address] [place] [address] Jhoan Dowd PTTon 05-20-2021 aPTT Coag (Bld) [Time] 27.4 s Normal 22.3-36.2 [facility] Comment on above: Performed By: #### P TT, PT #### [facility] [address] [place] [address] Jhoan Dowd TSHon 05-20-2021 TSH 1.434 uIU/mL Normal 0.470-4.680 [facility] Comment on above: Performed By: #### P REGQNT, TSH #### [facility] [address] [place] [address] Jhoan Dowd TSH RANGE SEE BELOW Normal [facility] Comment on above: Result Comment: <0.3 4 UIU/ml HYPERTHYROID 0.34-5.60 UIU/ml EUTHYROID >5.60 UIU/ml HYPOTHYROID Performed By: #### P REGQNT, TSH #### [facility] [address] [place] [address] Jhoan Dowd PAP ACOG PANEL 2: 30 to 65on 05-19-2021 . . Normal [facility] Comment on above: Result Comment: Perf ormed at: WB Performed By: #### [id number] #### [facility] [address] [place] [address] Jhoan Dowd Age Gdln ACOG Testing 30-65 Normal [facility] Comment on above: Performed By: #### [id number] #### [facility] [address] [place], [place] [id number] Jhoan Dowd DIAGNOSIS: Comment Normal [facility] Comment on above: Result Comment: NEGA TIVE FOR INTRAEPITHELIAL LESION OR MALIGNANCY. THIS SPECIMEN WAS RESCREENED PART OF OUR [employer]IP[employer] PROGRAM. Performed at: WB Performed By: #### [id number] #### [facility] [address] [place] [address] Jhoan Dowd HPV Aptima Negative Normal Negative [facility] Comment on above: Result Comment: This nucleic acid amplification test detects fourteen high-risk HPV types (16,18,31,33,35,39,45,51,52,56,58,59,66,68) without differentiation. Performed at: =G Performed By: #### [id number] #### [facility] [address] [place] [address] Jhoan Dowd Methodology: Comment Normal [facility] Comment on above: Result Comment: This liquid based ThinPrep(R) pap test was screened with the use of an image guided system. Performed at: WB Performed By: #### [id number] #### [facility] [address] [place] [address] Jhoan Dowd Note: Comment Normal [facility] Comment on above: Result Comment: The Pap smear is a screening test designed to aid in the detection of premalignant and malignant conditions of the uterine cervix. It is not a diagnostic procedure and should not be used as the sole means of detecting cervical cancer. Both false-positive and false-negative reports do occur. . Performed at: WB Performed By: #### [id number] #### [facility] [address] [place] [address] Jhoan Dowd Performed by: Comment Normal [facility] Comment on above: Result Comment: Karli Palencia, International Project Engineer (ASCP) Performed at: WB Performed By: #### [id number] #### [facility] [address] [place] [address] Jhoan Dowd QC reviewed by: Comment Normal [facility] Comment on above: Result Comment: Yfn Rodriguez, Supervisory International Project Engineer (ASCP) Performed at: WB Performed By: #### [id number] #### [facility] [address] [place] [address] Jhoan Dowd Specimen adequacy: Comment Normal [facility] Comment on above: Result Comment: Sati sfactory for evaluation. Endocervical and/or squamous metaplastic cells (endocervical component) are present. Performed at: WB Performed By: #### [id number] #### [facility] [address] [place] [address] Noemí Vital Signs Date Time Vital Sign Value Performing Clinician Facility 04-01-2025 14:57-0400 Body weight 79.56 kg Karli WEST Work Phone: [facility] 04-01-2025 14:57-0400 Diastolic blood pressure 74 mm[Hg] Karli WEST Work Phone: [facility] 04-01-2025 14:57-0400 Systolic blood pressure 120 mm[Hg] Karli WEST Work Phone: [facility] 07-21-2022 17:00-0500 Body height 170.18 cm Horace Sauceda Other [facility] Other 07-21-2022 17:00-0500 Body mass index (BMI) [Ratio] 36.32 kg/m2 Horace Sauceda Other [facility] Other 07-21-2022 17:00-0500 Body weight 105.19 kg Horace Sauceda Other [facility] Other 07-21-2022 17:00-0500 Diastolic blood pressure 72 mm[Hg] Horace Sauceda Other [facility] Other 07-21-2022 17:00-0500 Respiratory rate 18 /min Horace Sauceda Other [facility] Other 07-21-2022 17:00-0500 SaO2% (BldA) [Mass fraction] 99 % Horace Sauceda Other [facility] Other 07-21-2022 17:00-0500 Systolic blood pressure 106 mm[Hg] Horace Sauceda Other [facility] Other 05-19-2022 17:30-0400 Body height 170.18 cm Horace Sauceda Other [facility] Other 05-19-2022 17:30-0400 Body mass index (BMI) [Ratio] 36.46 kg/m2 Horace Sauceda Other [facility] Other 05-19-2022 17:30-0400 Body weight 105.6 kg Horace Sauceda Other [facility] Other 05-19-2022 17:30-0400 Diastolic blood pressure 79 mm[Hg] Horace Sauceda Other [facility] Other 05-19-2022 17:30-0400 Respiratory rate 18 /min Horace Cobiandiff Other [facility] Other 05-19-2022 17:30-0400 SaO2% (BldA) [Mass fraction] 98 % Horace Cobiandiff Other [facility] Other 05-19-2022 17:30-0400 Systolic blood pressure 114 mm[Hg] Horace Sauceda Other [facility] Other 03-16-2022 16:30-0400 Body height 170.18 cm Horace Sauceda Other [facility] Other 03-16-2022 16:30-0400 Body mass index (BMI) [Ratio] 35.13 kg/m2 Horace Sauceda Other [facility] Other 03-16-2022 16:30-0400 Body weight 101.74 kg Horace Cobiandiff Other [facility] Other 03-16-2022 16:30-0400 Diastolic blood pressure 72 mm[Hg] Horace Cobiandiff Other [facility] Other 03-16-2022 16:30-0400 Respiratory rate 18 /min Horace Cobiandiff Other [facility] Other 03-16-2022 16:30-0400 SaO2% (BldA) [Mass fraction] 99 % Horace Cobiandiff Other [facility] Other 03-16-2022 16:30-0400 Systolic blood pressure 98 mm[Hg] Horace Cobiandiff Other [facility] Other 01-19-2022 16:15-0400 Body height 170.18 cm Horace Sauceda Other [facility] Other 01-19-2022 16:15-0400 Body mass index (BMI) [Ratio] 36.91 kg/m2 Horace Sauceda Other [facility] Other 01-19-2022 16:15-0400 Body weight 106.91 kg Horace Sauceda Other [facility] Other 01-19-2022 16:15-0400 Diastolic blood pressure 81 mm[Hg] Horacealyssa Cobiandiff Other [facility] Other 01-19-2022 16:15-0400 Respiratory rate 18 /min Horace Cobiandiff Other [facility] Other 01-19-2022 16:15-0400 SaO2% (BldA) [Mass fraction] 98 % Horacealyssa Cobiandiff Other [facility] Other 01-19-2022 16:15-0400 Systolic blood pressure 111 mm[Hg] Horace Sauceda Other [facility] Other 12-07-2021 16:30-0400 Body height 170.18 cm Horace Cobiandiff Other [facility] Other 12-07-2021 16:30-0400 Body mass index (BMI) [Ratio] 36.76 kg/m2 Horace Cobiandiff Other [facility] Other 12-07-2021 16:30-0400 Body weight 106.46 kg Horace Cobiandiff Other [facility] Other 12-07-2021 16:30-0400 Diastolic blood pressure 79 mm[Hg] Horace Sauceda Other [facility] Other 12-07-2021 16:30-0400 Respiratory rate 18 /min Horace Sauceda Other [facility] Other 12-07-2021 16:30-0400 SaO2% (BldA) [Mass fraction] 100 % Horace Cobiandiff Other [facility] Other 12-07-2021 16:30-0400 Systolic blood pressure 106 mm[Hg] Horace Cobiandiff Other [facility] Other 10-29-2021 16:15-0500 Body height 170.18 cm Horace Cobiandiff Other [facility] Other 10-29-2021 16:15-0500 Body mass index (BMI) [Ratio] 36.72 kg/m2 Horace Sauceda Other [facility] Other 10-29-2021 16:15-0500 Body weight 106.37 kg Horace Sauceda Other [facility] Other 10-29-2021 16:15-0500 Diastolic blood pressure 74 mm[Hg] Horace Sauceda Other [facility] Other 10-29-2021 16:15-0500 Respiratory rate 18 /min Horace Sauceda Other [facility] Other 10-29-2021 16:15-0500 SaO2% (BldA) [Mass fraction] 100 % Horace Sauceda Other [facility] Other 10-29-2021 16:15-0500 Systolic blood pressure 105 mm[Hg] Horace Sauceda Other [facility] Other Encounters Encounter Date Encounter Type Care Provider Facility Start: 04-01-2025 End: 04-01-2025 Patient encounter procedure Karli WEST Work Phone: [facility] Start: 04-01-2025 End: 04-01-2025 Periodic preventive med est patient 40-64yrs Karli WEST Work Phone: [facility] Comment on above: Acne, unspecified ac ne type (Primary Dx); Well woman exam with routine gynecological exam; Breast cancer screening by mammogram Start: 04-01-2025 End: 04-01-2025 Bamboo flowsheet Karli WEST Work Phone: [facility] Start: 04-01-2025 End: 04-01-2025 Bamboo flowsheet Karil WEST Work Phone: [facility] Start: 07-21-2022 End: 07-22-2022 ambulatory Philly Jesi [facility] Other Start: 07-21-2022 Follow-up encounter Horace mcg[facility] Start: 05-19-2022 End: 05-19-2022 ambulatory Horace Sauceda Other [facility] Other Start: 05-19-2022 Follow-up encounter Horace mcg[facility] Start: 03-16-2022 End: 03-16-2022 ambulatory Horace Sauceda Other [facility] Other Start: 03-16-2022 Follow-up encounter Horace mcg[facility] Start: 03-10-2022 End: 03-10-2022 ambulatory Horace Sauceda Other [facility] Other Start: 03-10-2022 Telephone encounter Horace mcg[facility] Start: 02-16-2022 End: 02-16-2022 ambulatory Horace Sauceda Other [facility] Other Start: 02-16-2022 Telephone encounter Horace mgchee [facility] Start: 02-09-2022 End: 02-09-2022 ambulatory Horace Sauceda Other [facility] Other Start: 02-09-2022 Telephone encounter Horace mcghee [facility] Start: 01-26-2022 End: 01-26-2022 ambulatory Mattie Fitt Other [facility] Other Start: 01-26-2022 IBT FOR OBESITY GROU P 2-10 30M Mattie New [facility] Start: 01-19-2022 End: 01-19-2022 ambulatory Horace Cobiandiff Other [facility] Other Start: 01-19-2022 Follow-up encounter Horace Komal Elizabeth ladiyiss[facility] Start: 12-21-2021 End: 12-21-2021 ambulatory Mattie New Other [facility] Other Start: 12-21-2021 Telephone encounter Mattie garcia [facility] Start: 12-07-2021 End: 12-07-2021 ambulatory Horace Cobiandiff Other [facility] Other Start: 12-07-2021 Follow-up encounter Horace Cobiandiwalter mcghee [facility] Start: 12-07-2021 Telephone encounter Horace Komal Elizabeth eldoradoyissel [facility] Start: 11-02-2021 End: 11-02-2021 ambulatory Mattie New Other [facility] Other Start: 11-02-2021 Telephone encounter Mattie garcia [facility] Start: 10-29-2021 End: 10-29-2021 ambulatory Horace Cobiandiff Other [facility] Other Start: 10-29-2021 Nutrition therapy Horace Sauceda Ekaterina garcia [facility] Start: 07-24-2021 End: 07-24-[address] DON AMEZQUITA Facility:[facility] Start: 07-19-2021 Encounter for other preprocedural examination DR DON AMEZQUITA [facility] Start: 07-14-2021 End: 07-15-[address] DON AMEZQUITA Facility:[facility] Start: 07-14-2021 End: 07-15-2021 Encounter for other preprocedural examination DR DON AMEZQUITA Facility:[facility] Start: 06-01-2021 Encounter for gynecological examination (general) (routine) without abnormal findings DR DON AMEZQUITA [facility] Start: 05-20-2021 End: 05-21-[address] DON AMEZQUITA Facility:[facility] Start: 05-20-2021 End: 05-21-2021 Encounter for gynecological examination (general) (routine) without abnormal findings DR DON AMEZQUITA Facility:[facility] Start: 05-13-2021 End: 05-13-[address] DON AMEZQUITA Facility:[facility] Plan of Treatment Date Care Activity Detail Author Start: 04-01-2025 End: 04-01-2025 Patient encounter procedure 04/01/2025 3:00 PM EDT Office Visit [facility] [address] [address] Karli Luis PA [address] [place] [address] Arrived [facility] Comment on above: Arrived Start: 04-01-2025 End: 06-02-2026 MG Breast - bilateral Screening Bilateral screening mammogram Imaging Routine Breast cancer screening by mammogram Expected: 04/01/2025 (Approximate), Expires: 06/02/2026 [facility] Work Phone: Comment on above: Expected: 04/01/2025 (Approximate), Expires: 06/02/2026 THIN PREP TIS PAP AN D HR HPV DNA THIN PREP TIS PAP AND HR HPV DNA Pathology and Cytology Routine Well woman exam with routine gynecological exam Ordered: 04/01/2025 [facility] Comment on above: Ordered: 04/01/2025 Payers Date Payer Category Payer Self-pay [id number] 2019 Medicaid (Managed Care) [facility] MEDICAID [id number] 1984 Unknown [id number] 1984 Unknown [id number] 1984 Unknown [id number] 1984 Unknown [id number] 1959 Unknown [id number] Unknown [id number] Social History Date Type Detail Facility Unknown if ever smoked [facility] Other Sex Assigned At [facility] Other Start: 1985 Sex Assigned At Female F [facility] Tobacco smoking status [facility] Tobacco smoking consumption unknown [facility] Start: 1985 Sex assigned at Not on file [facility] Medical Equipment Procedure Code Equipment Code Equipment Origin al Text Equipment Identifier Dates Pen Waldron [id number] X 5 MM Start: 02-17-2022 Clinical Notes 07-24-2021 to 04-01-2025 JENNA Musa - 04/01/2025 3:00 PM EDT Note Date & Type Note Facility 04-01-2025 History of Presen t illness Narrative 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 Exam conducted with a tag and label cutter present. Vitals: There is no height or [...] from respirator at work, we will send in keflex and then epiduo to help alleviate symptoms Orders Placed This Encounter Procedures Bilateral screening mammogram Follow Up: Patient is to return in one year for annual unless needed otherwise. Documented by JENNA Musa on behalf of: JENNA Musa documented in this encounter [facility] 07-21-2022 Evaluation note Encounter Date Diagnosis Assessment Notes Jul, Hypercholesterolemia (ICD-10 - E78.00) Jul, Obesity (BMI 35.0-39.9 without comorbidity) (ICD-10 - E66.9) Jul, Snores (ICD-10 - R06.83) Jul, Depression with anxiety (ICD-10 - F41.8) Jul, Vegetarian diet (ICD-10 - Z78.9) Jul, Fatigue (ICD-10 - R53.83) Jul, Anemia (ICD-10 - D64.9) Jul, ADHD (ICD-10 - F90.9) Jul, Nicotine abuse (ICD-10 - Z72.0) [facility] Other 09-07-2022 Evaluation note* Encounter Date Diagnosis Assessment Notes Treatment Notes Treatment Clinical Notes May, Hypercholesterolemia (ICD-10 - E78.00) May, Obesity (BMI 35.0-39 .9 without comorbidity) (ICD-10 - E66.9) May, Snores (ICD-10 - R06.83) May, Depression with anxi ety (ICD-10 - F41.8) May, Vegetarian diet (ICD -10 - Z78.9) May, Fatigue (ICD-10 - R53.83) May, Anemia (ICD-10 - D64.9) May, ADHD (ICD-10 - F90.9) May, Nicotine abuse (ICD- 10 - Z72.0) [facility] Other 07-05-2022 Evaluation note* Encounter Date Diagnosis Assessment Notes Treatment Notes Treatment Clinical Notes Mar, Hypercholesterolemia (ICD-10 - E78.00) Mar, Depression with anxi ety (ICD-10 - F41.8) Mar, Obesity (BMI 35.0-39 .9 without comorbidity) (ICD-10 - E66.9) Mar, Vegetarian diet (ICD -10 - Z78.9) Mar, Snores (ICD-10 - R06.83) Mar, Fatigue (ICD-10 - R53.83) Mar, Anemia (ICD-10 - D64.9) Mar, ADHD (ICD-10 - F90.9) Mar, Nicotine abuse (ICD- 10 - Z72.0) [facility] Other 05-31-2022 Evaluation note* Encounter Date Diagnosis Assessment Notes Treatment Notes Treatment Clinical Notes January, Obesity (BMI 35.0-39.9 without comorbidity) (ICD-10 - E66.9) [facility] Other 05-17-2022 Evaluation note* Encounter Date Diagnosis Assessment Notes Treatment Notes Treatment Clinical Notes January, Obesity, unspecified classification, unspecified obesity type, unspecified whether serious comorbidity present (ICD-10 - E66.9) January, BMI 36.0-36.9,adult (ICD-10 - Z68.36) January, Other Summary of Visi t: (A) Presentation of Plate Method discussed (B) Sample meal ideas reviewed (C) exercise recommendations reviewed Patient set the following goals: - patient set personal goal using given handout. [facility] Other 05-10-2022 Evaluation note* Encounter Date Diagnosis Assessment Notes Treatment Notes Treatment Clinical Notes January, Hypercholesterolemia (ICD-10 - E78.00) January, Depression with anxi ety (ICD-10 - F41.8) January, Obesity (BMI 35.0-39 .9 without comorbidity) (ICD-10 - E66.9) January, Vegetarian diet (ICD -10 - Z78.9) January, Snores (ICD-10 - R06.83) January, Fatigue (ICD-10 - R53.83) January, Anemia (ICD-10 - D64.9) January, ADHD (ICD-10 - F90.9) January, Nicotine abuse (ICD- 10 - Z72.0) January, Other Patient here today for an appointment, Saxenda training completed. Patient cleaned her skin with alcohol pad to administer her first injection for Saxenda 0.6 mg SQ in her left lower quadrant of her abdomen without difficulty. Patient states she is very anxious, I've never given myself an injection before . Pt willing to self- administer first injection. Patient was able to use correct technique. Instructed patient to dose 0.6 mg once a week for 1 week, then may slowly increase dose up to 1.2 mg the following week. Discussed possible side effects and encouraged to maintain a healthy well-balanced diet with exercise. Encouraged to decrease carbonated beverages, regular soda, greasy or high fat/carb foods. Patient is in agreement with plan. All questions answered. No further concerns. Encouraged to return for follow up visit. Instructed to call office with any concerns.15 minutes spent on education with Zulay HENDRICKS, RN. [facility] Other 03-28-2022 Evaluation note* Encounter Date Diagnosis Assessment Notes Treatment Notes Treatment Clinical Notes Nov, Depression with anxiety (ICD-10 - F41.8) Nov, Obesity (BMI 35.0-39.9 without comorbidity) (ICD-10 - E66.9) Nov, Vegetarian diet (ICD-10 - Z78.9) Nov, Snores (ICD-10 - R06.83) Nov, Fatigue (ICD-10 - R53.83) Nov, Anemia (ICD-10 - D64.9) Nov, ADHD (ICD-10 - F90.9) Nov, Nicotine abuse (ICD-10 - Z72.0) [facility] Other 02-17-2022 Evaluation note* Encounter Date Diagnosis Assessment Notes Treatment Notes Treatment Clinical Notes Oct, Abnormal weight gain (ICD-10 - R63.5) Oct, Anemia (ICD-10 - D64.9) Oct, Vegetarian diet (ICD-10 - Z78.9) Oct, Fatigue (ICD-10 - R53.83) Oct, Depression with anxiety (ICD-10 - F41.8) Oct, ADHD (ICD-10 - F90.9) Oct, Nicotine abuse (ICD-10 - Z72.0) Oct, Snores (ICD-10 - R06.83) Oct, Obesity (BMI 35.0-39.9 without comorbidity) (ICD-10 - E66.9) [employer] Other [id number] NoteOPERATIVE NOTE OPERATION DATE: 07-24-21 ANESTHETIC:General. 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 PREOPERATIVE DIAGNOSIS:Menorrhagia. POSTOPERATIVE DIAGNOSIS:Same. PROCEDURE NAME: Mavis ablation with hysteroscopy. FINDINGS: Both ostia seen. No gross evidence of polyps, fibroids, or malignancy. SPECIMEN:None. BLOOD LOSS:5 mL. PROCEDURE: The patient was taken back to the OR where she was prepped and draped in the normal sterile fashion after being placed in the dorsal lithotomy position, after being placed under general anesthesia without difficulty. The anterior lip was grasped with a single tooth tenaculum. The patient was then gently sounds. The patient was gently sounded using Hegar dilators and the hysteroscope was passed through the cervix into the uterus where both ostia were seen. No gross evidence of polyps, fibroids or malignancy. A weighted speculum was placed in the patient's vagina, the anterior tip of the cervix was identified and grasped with a single tooth tenaculum. The patient was gently sounded to roughly 10 cm. The cervical length was noted to be 5 cm. The Mavis ablation apparatus was set to approximately 5 in length. This was placed in through the cervix and into the uterus. After the seal was tested, at that time the total ablation of 120 seconds was performed with the Mavis without difficulty. All instruments were removed from the vagina. [facility] Signed and Approved by: DR DON AMEZQUITA . 07/28/2021 08:36:00[facility] Other Evaluation noteNo assessment information available [facility] Work Phone: Evaluation note* Diagnosis Acne, unspecified acne type- Primary Well woman exam with routine gynecological exam Routine gynecological examination Breast cancer screening by mammogram [facility] N[facility]ative - Reported* Type Description Date Medical History chronic depression Medical History anxiety Medical History ADHD Medical History fatigue Surgical History D&C Surgical History ablasion Surgical History tubes in ears [facility] Other Summary Purpose Family History No Family History Records FoundNo Family History Records Found Advance Directives No Advanced Directives Records FoundNo Advanced Directives Records Found Reason for Referral Reason Appt: [place] of 2 0 Diagnosis 1 Fatigue (R53.83) Referral Organization [facility] Referring Provider First Name Horace Referring Provider Last Name Komal Referring Provider Specialty Internal Me dicine Referred Organization [facility] Referred Address [address] [place] [place], [place],[address] Referred Provider Specialty Sleep Medici ne Referral Priority Routine Additional Source Comments INFORMATION SOURCE (unrecogn ized section and content) DATE CREATED AUTHOR 07/31/2021 [facility] DATE CREATED AUTHOR AUTHOR'S ORGANIZ ATION 06/18/2023 [facility] REASON FOR VISIT (unrecogniz ed section and content) Reason Comments Well Women Visit Goals (unrecognized section and content) Goals may be documented in a n alternate section FOR RECORDS PERTAINING TO PATIENTS WHO ARE OR HAVE BEEN ENROLLED IN A CHEMICAL DEPENDENCY/SUBSTANCEABUSE PROGRAM, SOME INFORMATION MAY BE OMITTED. This clinical summary was aggregated from multiple sources. Caution should be exercised in using it in the provision of clinical care. This summary normalizes information from multiple sources, and as a consequence, information in this document may materially change the coding, format and clinical context of patient data. In addition, data may be omitted in some cases. CLINICAL DECISIONS SHOULD BE BASED ON THE PRIMARY CLINICAL RECORDS. [employer] provides no warranty or guarantee of the accuracy or completeness of information in this document.
--- OUTSIDE RECORDS SUMMARY | 2025-04-01 19:47 | XMS_ITS | Encounter Summary ---
Author Organization [facility] Address [address] [place] [address] Care Team Providers Care Life Skills Teacher Name Role Phone Unavailable Primary Care Provider Unavailabl e Encounter Details Date Type Department Care Team (Late st Contact Info) Description 04/01/2025 Bamboo flowsheet [facility] [address] [place] [id number] Karli Luis PA [address] [place] [address] Dr [place], [facility] Social History Tobacco Use Types Packs/Day Years Used Date Smoking Tobacco: Never Assessed Comments Unknown Sex and Gender Information Value Date Recorded Sex Assigned at Not on file Legal Sex Female 8:28 PM EDT Gender Identity Not on file Sexual Orientation Not on file documented as of this encounter Plan of Treatment Upcoming Encounters Date Type Department Care Team (Late st Contact Info) Description 04/07/2026 3:00 PM EDT Procedure Visit [facility] [address] [place] [address] Karli Luis, PA [address] [place] [address] Dr [place], [place] [id number] documented as of this encounter Visit Diagnoses Not on filedocumented in this encounter
--- OUTSIDE RECORDS SUMMARY | 2025-04-01 19:47 | XMS_ITS | Patient Health Record ---
Author Organization [facility] Address [address] [place] [address] Care Team Providers Care Rotor Coil Taper Name Role Phone Jade Regalado Primary Care Provider Dr. Mo Jones Unavailable [phone] Kailyn Dugan Unavailable [phone] Reason For Referral No Information Encounters Encounter Location Date Provider Diagnosis [facility] [address] [place] [address] 04/23/2024 [facility] [address] [place] [address] 04/26/2024 [facility] [place] [address] 04/25/2024 Mo Jones Encounter for dental examination and cleaning with abnormal findings Z01.21 ; Other dental procedure status Z98.818 ; Dental caries on pit and fissure surface penetrating into dentin K02.52 ; Cracked tooth K03.81 ; Partial loss of teeth, unspecified cause, class I K08.401 and Necrosis of pulp K04.1 Assessments Encounter Date Diagnosis (ICD Code) Assessment Notes Treatment Notes Treatment Clinical Notes Section Notes 04/25/2024 Encounter for dental examination and cleaning with abnormal findings (ICD-10 - Z01.21) 04/25/2024 Other dental procedure status (ICD-10 - Z98.818) 04/25/2024 Dental caries on pit and fissure surface penetrating into dentin (ICD-10 - K02.52) 04/25/2024 Cracked tooth (ICD-10 - K03.81) 04/25/2024 Partial loss of teeth, unspecified cause, class I (ICD-10 - K08.401) 04/25/2024 Necrosis of pulp (ICD-10 - K04.1) Plan Of Treatment No Information Insurance Providers Payer Name Payer Address Payer Phone Subscriber Number Group Number Insured Name Patient Relationship to Insured Coverage Start Date Coverage End Date [employer] [address] [address] [place] [address] [phone] [id number] NATALIIA HOYT Self - patient is the insured 4 [employer] [facility] [place] [address] [place] [address] [phone] [id number] NATALIIA HOYT Self - patient is the insured 4
--- OUTSIDE RECORDS SUMMARY | 2025-04-01 19:47 | XMS_ITS | Clinical Summary ---
Author Organization [facility] Address [address] [place] [address] Care Team Providers Care Contract Lead Name Role Phone Unavailable Primary Care Provider Unavailabl e Social History Tobacco Use Types Packs/Day Years Used Date Smoking Tobacco: Never Assessed [place] Safety & Environment Answer Date Rec orded Fear of Current or Ex-Partner Not on file Emotionally Abused Not on file 11/03/2023 Physically Abused Not on file 11/03/2023 Sexually Abused Not on file 11/03/2023 Physically or Sexually Abused Not on file Comments Unknown Sex and Gender Information Value Date Recorded Sex Assigned at Not on file Legal Sex Female 12:43 AM EDT Gender Identity Not on file Sexual Orientation Not on file Plan of Treatment Not on file
[2025-04-04 16:09] LABS: Age Gdln ACOG Testing Note (.); IGP, Aptima HPV, rfx 16/18,45 Note (.)
== END 2025-04-01 19:44 | disposition home or self-care (01) ==
LOC: LAB 19:43
PROVIDERS: Visit Provider Physician Assistant
DX: Z01.419 Encounter for gynecological examination (general) (routine) without abnormal findings (principal)
CPT/HCPCS: 87624; 88175

== ENCOUNTER 2025-06-13 16:02 | Outpatient (OUT) | payer OTHER, SELFPAY ==
--- OUTSIDE RECORDS SUMMARY | 2025-06-13 19:55 | XMS_ITS | CCD ---
Author Organization [facility] Care Team Providers Care Resident Hall Director Name Role Phone BIA, DR OCHOA Consulting Unavailable BIA, DR OCHOA Admitting Unavailable BIA, DR OCOHA Attending Unavailable BIA, DR OCHOA Primary Care [...] Unavailable ZIEBER, DR LEXI Leyva Consulting Unavailable Matite New Unavailable Horace Sauceda Unavailable Philly Dennison Attending Unavailable Philly Dennison Primary Care Unavailable Philly Dennison Admitting Unavailable Unavailable Primary Care Provider UnavailKARLI Harvey Attending Unavailable Medications Current Medications Medication Drug Class(es) Dates Sig (Normalized) Sig (Original) adapalene 0.001 mg/mg / benzoyl peroxide 0.025 mg/mg topical gel (3 sources) Retinoid Start: 04-01-2025 Adapalene-Benzoyl Peroxide 0.1-2.5 % gel Indications: Acne, unspecified acne type Apply pea-size amount to T-zone, chin and problem areas nightly. 45 g 1 04/01/2025 Active 24 hr amphetamine aspartate 5 mg / amphetamine sulfate 5 mg / dextroamphetamine saccharate 5 mg / dextroamphetamine sulfate 5 mg extended release oral capsule (16 sources) Central Nervous System Stimulant Start: 03-25-2025 take 1 capsule by mouth in the morning, then take 1 capsule by mouth every twenty-four hours amphetamine-dextr oamphetamine XR (Adderall XR) 20 MG 24 hr capsule Take 20 mg by mouth in the morning. 03/25/2025 Active take 1 capsule by mo [facility] every twenty-four hours Adderall XR 15 MG 1 capsule in the morning Orally Once a day Active ARIPiprazole 5 mg oral tablet (16 sources) Atypical Antipsychotic Start: 01-23-2025 take 1 tablet by mouth once daily ARIPiprazole (Abilify) 5 MG tablet Take 5 mg by mouth Daily 01/23/2025 Active take 1 tablet by janae every twenty-four hours Abilify 5 MG 1 tablet Orally Once a day Active cephalexin 500 mg oral capsule (3 sources) Cephalosporin Antibacterial Start: 04-01-2025 End: 04-15-2025 take 1 capsule by mouth in the morning, then take 1 capsule by mouth in the evening, then take 1 capsule by mouth at bedtime cephalexin (Keflex) 500 MG capsule Indications: Acne, unspecified acne type Take 1 capsule (500 mg) by mouth in the morning and 1 capsule (500 mg) in the evening and 1 capsule (500 mg) before bedtime. Do all this for 14 days. 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 [facility] Comment on above: TESTS RESULT FLAG UN ITS REF RANGE LAB Clinician Provided Cytology Information Source.............Cervix;Endocervix No. of containers..01 ThinPrep Vial Age Algo ACOG Elizabeth... 30-65 01 FLAG LEGEND: L-Low Normal,H-High Normal,LL-Alert Low,HH-Alert High <-Panic Low,>-Panic High,A-Abnormal,AA-Critical Abnormal Performed at: 01 =G [address] [id number] Hayley Donato MD, HPV APTIMA Negative Negative [facility] e Comment on above: This nucleic acid am plification test detects fourteen high- risk HPV types (16,18,31,33,35,39,45,51,52,56,58,59,66,68) without differentiation. Performed at: =G - [facility] [address], [place] [id number] Vibration Technician: Hayley Donato MD, Phone: [phone] Performed at: - [facility] [address], [place] [id number] Vibration Technician: Hayley Donato MD, Phone: [phone] IGP, APTIMA HPV, RFX 16/18,45 Note . [facility] Comment on above: TESTS RESULT FLAG UN ITS REF RANGE LAB DIAGNOSIS: 02 NEGATIVE FOR INTRAEPITHELIAL LESION OR MALIGNANCY. CELLULAR CHANGES ASSOCIATED WITH INFLAMMATION ARE PRESENT. Specimen adequacy: 02 Satisfactory for evaluation. Endocervical and/or squamous metaplastic cells (endocervical component) are present. Performed by: Dedrick Carmona, Music Executive (ASCP) . 02 Note: Note 02 The Pap smear is a screening test designed to aid in the detection of premalignant and malignant conditions of the uterine cervix. It is not a diagnostic procedure and should not be used as the sole means of detecting cervical cancer. Both false-positive and false-negative reports do occur. Test Methodology: Note 02 This liquid based ThinPrep(R) pap test was screened with the use of an image guided system. HPV Genotype Reflex Note 02 Criteria not met, HPV Genotype not performed. FLAG LEGEND: L-Low Normal,H-High Normal,LL-Alert Low,HH-Alert High <-Panic Low,>-Panic High,A-Abnormal,AA-Critical Abnormal Performed at: 02 WB [facility] [address] [place] [id number] Hayley Donato MD, BRUSH-SPATULA CERVIX ENDOCERVIX [facility] CBC AUTO DIFFon 07-24-2021 BASO # 0.0 103/ul Normal 0.0-0.1 [facility] Comment on above: Performed By: #### C BC #### [facility] [address] [address] [address] Saji Pacheco Basophils/100 WBC (Bld) 0.4 % Normal 0.2-2.0 [facility] Comment on above: Performed By: #### C BC #### [facility] [address] [address] [address] Saji Pacheco EO # 0.2 103/ul Normal 0.0-0.7 [facility] Comment on above: Performed By: #### C BC #### [facility] [address] [place] [address] Dr. Saji Pacheco Eosinophils/100 WBC (Bld) 3.7 % Normal 0.9-7.0 [facility] Comment on above: Performed By: #### C BC #### [facility] [address] [address] [address] Saji Pacheco Erythrocyte distribution width (RBC) [Ratio] 15.7 % Critically high 11.0-15.0 [facility] Comment on above: Performed By: #### C BC #### [facility] [address] [address] [address] Saji Pacheco Hematocrit (Bld) [Volume fraction] 37.0 % Normal 36.0-48.0 [facility] Comment on above: Performed By: #### C BC #### [facility] [address] [address] [address] Saji Pacheco Hemoglobin (Bld) [Mass/Vol] 11.3 g/dL Critically low 12.0-16.0 [facility] Comment on above: Performed By: #### C BC #### [facility] [address] [address] [address] Saji Pacheco IG # 0.01 10e3/ul Normal 0.00-0.03 [facility] Comment on above: Performed By: #### C BC #### [facility] [address] [address] [address] Saji Pacheco IG % 0.2 % Normal 0.0-0.5 [facility] Comment on above: Performed By: #### C BC #### [facility] [address] [place] [address] Dr. Saji Pacheco LYMPH # 1.8 103/ul Normal 1.2-3.8 [facility] Comment on above: Performed By: #### C BC #### [facility] [address] [place] [address] Dr. Saji Pacheco Lymphocytes/100 WBC (Bld) 30.9 % Normal 20.5-60.0 [facility] Comment on above: Performed By: #### C BC #### [facility] [address] [place] [address] Dr. Saji Pacheco MANUAL DIFF REQ NO Normal [facility] Comment on above: Performed By: #### C BC #### [facility] [address] [place] [address] Dr. Saji Pacheco MCH (RBC) [Entitic mass] 25.3 pg Critically low 26.7-34.0 [facility] Comment on above: Performed By: #### C BC #### [facility] [address] [place] [address] Dr. Saji Pacheco MCHC (RBC) [Mass/Vol] 30.5 g/dL Normal 29.9-35.2 [facility] Comment on above: Performed By: #### C BC #### [facility] [address] [place] [address] Dr. Saji Pacheco MCV (RBC) [Entitic vol] 83.0 fL Normal 81.0-99.0 [facility] Comment on above: Performed By: #### C BC #### [facility] [address] [place] [address] Dr. Saji Pacheco MONO # 0.6 103/ul Normal 0.3-0.8 [facility] Comment on above: Performed By: #### C BC #### [facility] [address] [place] [address] Dr. Saji Pacheco Monocytes/100 WBC (Bld) 11.3 % Normal 1.7-12.0 [facility] Comment on above: Performed By: #### C BC #### [facility] [address] [place] [address] Dr. Saji Pacheco NEUT # 3.0 103/ul Normal 1.4-6.5 [facility] Comment on above: Performed By: #### C BC #### [facility] [address] [place] [address] Dr. Saji Pacheco Neutrophils/100 WBC (Bld) 53.5 % Normal 43.0-75.0 [facility] Comment on above: Performed By: #### C BC #### [facility] [address] [place] [address] Dr. Saji Pacheco Platelet mean volume (Bld) [Entitic vol] 8.9 fL Critically low 9.5-13.5 [facility] Comment on above: Performed By: #### C BC #### [facility] [address] [place] [address] Dr. Saji Pacheco PLT 361 103/ul Normal 150-450 [facility] Comment on above: Performed By: #### C BC #### [facility] [address] [place] [address] Dr. Saji Pacheco RBC 4.46 106/ul Normal 4.20-5.40 [facility] Comment on above: Performed By: #### C BC #### [facility] [address] [place] [address] Dr. Saji Pacheco WBC 5.7 103/ul Normal 4.0-11.0 [facility] Comment on above: Performed By: #### C BC #### [facility] [address] [place] [address] Dr. Saji Pacheco PREG QUANT HCGon 07-24-2021 HCG QUANT 1 mIU/mL Normal [facility] Comment on above: Performed By: #### P REGQNT #### [facility] [address] [place], [place] [address] Dr. Saji Pacheco HCG RANGE SEE BELOW Normal [facility] Comment on above: Result Comment: 5-50 0-1 WEEK 40-300 1-2 WEEKS 100-1,000 2-3 WEEKS 500-6,000 3-4 WEEKS 5,000-200,000 1-2 MONTHS 10,000-100,000 2-3 MONTHS 3,000-50,000 2ND TRIMESTER 1,000-50,000 3RD TRIMESTER Performed By: #### P REGQNT #### [facility] [address] [place], [place] [address] Dr. Saji Pacheco [facility]on SARS-CoV-2 (COVID-19) RNA VEGA+probe Ql (Unsp spec) Not detected Normal NOT DETECTED [facility] Comment on above: Result Comment: This test is not yet approved or cleared by the [place] FDA. When there are no FDA-approved or cleared tests available, and other criteria are met, FDA can make tests available under an emergency access mechanism called an Emergency Use Authorization (EUA). The EUA for this test is supported by the Test Grader of Health and Human Service's (HHS's) declaration [...] with SARS-CoV-2. Performed By: #### C VDTBH ####[facility] [id number] [place], [place] [address]FsDr. Saji Pacheco US PELVIS AND TRANSVAGon US PELVIS [...] LEXI IRELAND Date: 2021-05-21 08:03 Normal [facility] CBC AUTO DIFFon 05-20-2021 BASO # 0.1 103/ul Normal 0.0-0.1 [facility] Comment on above: Performed By: #### C BC #### [facility] [address] [place], [place] [address] Jhoan Noemí Basophils/100 WBC (Bld) 0.5 % Normal 0.2-2.0 [facility] Comment on above: Performed By: #### C BC #### [facility] [address] [place], [place] [address] Jhoan Noemí EO # 0.1 103/ul Normal 0.0-0.7 [facility] Comment on above: Performed By: #### C BC #### [facility] [address] [place], [place] [address] Jhoan Noemí Eosinophils/100 WBC (Bld) 0.9 % Normal 0.9-7.0 [facility] Comment on above: Performed By: #### C BC #### [facility] [address] [place], [place] [address] Jhoan Noemí Erythrocyte distribution width (RBC) [Ratio] 14.5 % Normal 11.0-15.0 [facility] Comment on above: Performed By: #### C BC #### [facility] [address] [place], [place] [id number] Jhoan Noemí Hematocrit (Bld) [Volume fraction] 33.6 % Critically low 36.0-48.0 [facility] Comment on above: Performed By: #### C BC #### [facility] [address] [place] [address] Jhoan Noemí Hemoglobin (Bld) [Mass/Vol] 10.7 g/dL Critically low 12.0-16.0 [facility] Comment on above: Performed By: #### C BC #### [facility] [address] [place] [address] Jhoan Noemí IG # 0.02 10e3/ul Normal 0.00-0.03 [facility] Comment on above: Performed By: #### C BC #### [facility] [address] [place] [address] Jhoan Noemí IG % 0.2 % Normal 0.0-0.5 [facility] Comment on above: Performed By: #### C BC #### [facility] [address] [place] [address] Jhoan Noemí LYMPH # 2.9 103/ul Normal 1.2-3.8 [facility] Comment on above: Performed By: #### C BC #### [facility] [address] [place] [address] Jhoan Noemí Lymphocytes/100 WBC (Bld) 31.0 % Normal 20.5-60.0 [facility] Comment on above: Performed By: #### C BC #### [facility] [address] [place] [address] Jhoanmonica Fontanezen MANUAL DIFF REQ NO Normal [facility] Comment on above: Performed By: #### C BC #### [facility] [address] [place], [place] [id number] Jhoan Noemí MCH (RBC) [Entitic mass] 25.3 pg Critically low 26.7-34.0 [facility] Comment on above: Performed By: #### C BC #### [facility] [address] [place] [address] Jhoan Noemí MCHC (RBC) [Mass/Vol] 31.8 g/dL Normal 29.9-35.2 [facility] Comment on above: Performed By: #### C BC #### [facility] [address] [place], [place] [address] Jhoan Dowd MCV (RBC) [Entitic vol] 79.4 fL Critically low 81.0-99.0 [facility] Comment on above: Performed By: #### C BC #### [facility] [address] [place] [address] Jhoan Dowd MONO # 0.7 103/ul Normal 0.3-0.8 [facility] Comment on above: Performed By: #### C BC #### [facility] [address] [place] [address] Jhoan Dowd Monocytes/100 WBC (Bld) 7.1 % Normal 1.7-12.0 [facility] Comment on above: Performed By: #### C BC #### [facility] [address] [place] [address] Jhoan Dowd NEUT # 5.7 103/ul Normal 1.4-6.5 [facility] Comment on above: Performed By: #### C BC #### [facility] [address] [place] [address] Jhoan Dowd Neutrophils/100 WBC (Bld) 60.3 % Normal 43.0-75.0 [facility] Comment on above: Performed By: #### C BC #### [facility] [address] [place], [place] [id number] Jhoan Dowd Platelet mean volume (Bld) [Entitic vol] 9.3 fL Critically low 9.5-13.5 [facility] Comment on above: Performed By: #### C BC #### [facility] [address] [place] [address] Jhoan Fontanezen PLT 332 103/ul Normal 150-450 [facility] Comment on above: Performed By: #### C BC #### [facility] [address] [place] [address] Jhoanmonica Fontanezen RBC 4.23 106/ul Normal 4.20-5.40 [facility] Comment on above: Performed By: #### C BC #### [facility] [address] [place] [address] Jhoan Dowd WBC 9.4 103/ul Normal 4.0-11.0 [facility] Comment on above: Performed By: #### C BC #### [facility] [address] [place] [address] Jhoan Dowd PREG QUANT HCGon 05-20-2021 HCG QUANT <1 Normal [facility] Comment on above: Performed By: #### P REGQNT, TSH #### [facility] [address] [place] [address] Jhoan Dowd HCG RANGE SEE BELOW Normal [facility] Comment on above: Result Comment: 5-50 0-1 WEEK 40-300 1-2 WEEKS 100-1,000 2-3 WEEKS 500-6,000 3-4 WEEKS 5,000-200,000 1-2 MONTHS 10,000-100,000 2-3 MONTHS 3,000-50,000 2ND TRIMESTER 1,000-50,000 3RD TRIMESTER Performed By: #### P REGQNT, TSH #### [facility] [address] [place] [address] Jhoan Dowd PROTIMEon 05-20-2021 INR Coag (PPP) [Relative time] 0.94 {INR} Normal [facility] Comment on above: Performed By: #### P TT, PT #### [facility] [address] [place] [address] Johan Dowd INR GUIDELINES SEE BELOW Normal [facility] Comment on above: Result Comment: MIKE RED INR: 2.0 - 3.0 CONDITIONS NOT LISTED BELOW 2.5 - 3.5 FOR PROSTHETIC HEART VALVE REPLACEMENT 2.5 - 3.5 RECURRENT THROMBOSIS Performed By: #### P TT, PT #### [facility] [address] [place] [address] Jhoan Dowd PT Coag (PPP) [Time] 10.2 s Normal 9.0-11.6 [facility] Comment on above: Performed By: #### P TT, PT #### [facility] [address] [place] [address] Jhoan Dowd PTTon 05-20-2021 aPTT Coag (Bld) [Time] 27.4 s Normal 22.3-36.2 [facility] Comment on above: Performed By: #### P TT, PT #### [facility] [address] [place] [address] Jhoan Dowd TSHon 05-20-2021 TSH 1.434 uIU/mL Normal 0.470-4.680 [facility] Comment on above: Performed By: #### P REGQNT, TSH #### [facility] [address] [place] [address] Jhoan Dowd TSH RANGE SEE BELOW Normal [facility] Comment on above: Result Comment: <0.3 4 UIU/ml HYPERTHYROID 0.34-5.60 UIU/ml EUTHYROID >5.60 UIU/ml HYPOTHYROID Performed By: #### P REGQNT, TSH #### [facility] [address] [place] [address] Jhoan Dowd PAP ACOG PANEL 2: 30 to 65on 05-19-2021 . . Normal [facility] Comment on above: Result Comment: Perf ormed at: WB Performed By: #### [id number] #### [facility] [address] [place] [address] Jhoan Dowd Age Gdln ACOG Testing 30-65 Normal [facility] Comment on above: Performed By: #### [id number] #### [facility] [address] [place] [address] Jhoan Dowd DIAGNOSIS: Comment Normal [facility] Comment on above: Result Comment: NEGA TIVE FOR INTRAEPITHELIAL LESION OR MALIGNANCY. THIS SPECIMEN WAS RESCREENED PART OF OUR SHOES SALESPERSON PROGRAM. Performed at: WB Performed By: #### [id number] #### [facility] [address] [place] [address] Jhoan Dowd HPV Aptima Negative Normal Negative [facility] Comment on above: Result Comment: This nucleic acid amplification test detects fourteen high-risk HPV types (16,18,31,33,35,39,45,51,52,56,58,59,66,68) without differentiation. Performed at: =G Performed By: #### [id number] #### [facility] [address] [place] [address] Jhoan Dowd Methodology: Comment Normal [facility] Comment on above: Result Comment: This liquid based ThinPrep(R) pap test was screened with the use of an image guided system. Performed at: WB Performed By: #### [id number] #### [facility] [address] [place] [address] Jhoan Dowd Note: Comment Normal [facility] Comment on above: Result Comment: The Pap smear is a screening test designed to aid in the detection of premalignant and malignant conditions of the uterine cervix. It is not a diagnostic procedure and should not be used as the sole means of detecting cervical cancer. Both false-positive and false-negative reports do occur. . Performed at: WB Performed By: #### [id number] #### [facility] [address] [place] [address] Jhoan Dowd Performed by: Comment Normal [facility] Comment on above: Result Comment: Karli Palencia, Fitness Management Director (ASCP) Performed at: WB Performed By: #### [id number] #### [facility] [address] [place] [address] Jhoan Dowd QC reviewed by: Comment Normal [facility] Comment on above: Result Comment: Yfn Rodriguez, Supervisory Fitness Management Director (ASCP) Performed at: WB Performed By: #### [id number] #### [facility] [address] [place] [address] Jhoan Dowd Specimen adequacy: Comment Normal [facility] Comment on above: Result Comment: Sati sfactory for evaluation. Endocervical and/or squamous metaplastic cells (endocervical component) are present. Performed at: WB Performed By: #### [id number] #### [facility] [address] [place] [address] Jhoan Dowd Vital Signs Date Time Vital Sign Value Performing Clinician Facility 04-01-2025 14:57-0400 Body weight 79.56 kg Karli Yeung JENNA Work Phone: [facility] 04-01-2025 14:57-0400 Diastolic blood pressure 74 mm[Hg] Karli Yeung JENNA Work Phone: [facility] 04-01-2025 14:57-0400 Systolic blood pressure 120 mm[Hg] Karli Yeung JENNA Work Phone: [facility] 07-21-2022 17:00-0500 Body height 170.18 cm Horace Sauceda Other [employer] Other 07-21-2022 17:00-0500 Body mass index (BMI) [Ratio] 36.32 kg/m2 Horace Sauceda Other [employer] Other 07-21-2022 17:00-0500 Body weight 105.19 kg Horace Sauceda Other [employer] Other 07-21-2022 17:00-0500 Diastolic blood pressure 72 mm[Hg] Horace Sauceda Other [employer] Other 07-21-2022 17:00-0500 Respiratory rate 18 /min Horace Sauceda Other [employer] Other 07-21-2022 17:00-0500 SaO2% (BldA) [Mass fraction] 99 % Horace Sauceda Other [employer] Other 07-21-2022 17:00-0500 Systolic blood pressure 106 mm[Hg] Horace Sauceda Other [employer] Other 05-19-2022 17:30-0400 Body height 170.18 cm Horace Sauceda Other [employer] Other 05-19-2022 17:30-0400 Body mass index (BMI) [Ratio] 36.46 kg/m2 Horace Sauceda Other [employer] Other 05-19-2022 17:30-0400 Body weight 105.6 kg Horace Sauceda Other [employer] Other 05-19-2022 17:30-0400 Diastolic blood pressure 79 mm[Hg] Horace Cobiandiff Other [employer] Other 05-19-2022 17:30-0400 Respiratory rate 18 /min Horace Cobiandiff Other [employer] Other 05-19-2022 17:30-0400 SaO2% (BldA) [Mass fraction] 98 % Horace Cobiandiff Other [employer] Other 05-19-2022 17:30-0400 Systolic blood pressure 114 mm[Hg] Horace Cobiandiff Other [employer] Other 03-16-2022 16:30-0400 Body height 170.18 cm Horace Cobiandiff Other [employer] Other 03-16-2022 16:30-0400 Body mass index (BMI) [Ratio] 35.13 kg/m2 Horace Cobiandiff Other [employer] Other 03-16-2022 16:30-0400 Body weight 101.74 kg Horacealyssa Cobiandiff Other [employer] Other 03-16-2022 16:30-0400 Diastolic blood pressure 72 mm[Hg] Horace Sauceda Other [employer] Other 03-16-2022 16:30-0400 Respiratory rate 18 /min Horace Sauceda Other [employer] Other 03-16-2022 16:30-0400 SaO2% (BldA) [Mass fraction] 99 % Horace Sauceda Other [employer] Other 03-16-2022 16:30-0400 Systolic blood pressure 98 mm[Hg] Horace Sacueda Other [employer] Other 01-19-2022 16:15-0400 Body height 170.18 cm Horace Sauceda Other [employer] Other 01-19-2022 16:15-0400 Body mass index (BMI) [Ratio] 36.91 kg/m2 Horace Sauceda Other [employer] Other 01-19-2022 16:15-0400 Body weight 106.91 kg Horace Sauceda Other [employer] Other 01-19-2022 16:15-0400 Diastolic blood pressure 81 mm[Hg] Horace Sauceda Other [employer] Other 01-19-2022 16:15-0400 Respiratory rate 18 /min Horace Sauceda Other [employer] Other 01-19-2022 16:15-0400 SaO2% (BldA) [Mass fraction] 98 % Horace Sauceda Other [employer] Other 01-19-2022 16:15-0400 Systolic blood pressure 111 mm[Hg] Horace Sauceda Other [employer] Other 12-07-2021 16:30-0400 Body height 170.18 cm Horace Sauceda Other [employer] Other 12-07-2021 16:30-0400 Body mass index (BMI) [Ratio] 36.76 kg/m2 Horace Sauceda Other [employer] Other 12-07-2021 16:30-0400 Body weight 106.46 kg Horace Sauceda Other [employer] Other 12-07-2021 16:30-0400 Diastolic blood pressure 79 mm[Hg] Horace Sauceda Other [employer] Other 12-07-2021 16:30-0400 Respiratory rate 18 /min Horace Sauceda Other [employer] Other 12-07-2021 16:30-0400 SaO2% (BldA) [Mass fraction] 100 % Horace Sauceda Other [employer] Other 12-07-2021 16:30-0400 Systolic blood pressure 106 mm[Hg] Horace Sauceda Other [employer] Other 10-29-2021 16:15-0500 Body height 170.18 cm Horace Sauceda Other [employer] Other 10-29-2021 16:15-0500 Body mass index (BMI) [Ratio] 36.72 kg/m2 Horace Sauceda Other [employer] Other 10-29-2021 16:15-0500 Body weight 106.37 kg Horace Sauceda Other [employer] Other 10-29-2021 16:15-0500 Diastolic blood pressure 74 mm[Hg] Horace Sauceda Other [employer] Other 10-29-2021 16:15-0500 Respiratory rate 18 /min Horace Sauceda Other [employer] Other 10-29-2021 16:15-0500 SaO2% (BldA) [Mass fraction] 100 % Horace Sandhuff Other [employer] Other 10-29-2021 16:15-0500 Systolic blood pressure 105 mm[Hg] Horace Cobiandiff Other [employer] Other Encounters Encounter Date Encounter Type Care Provider Facility Start: 04-01-2025 End: 04-01-2025 Patient encounter procedure Karli WEST Work Phone: [facility] Start: 04-01-2025 End: 04-01-2025 Periodic preventive med est patient 40-64yrs Karli WEST Work Phone: [facility] Comment on above: Acne, unspecified ac ne type (Primary Dx); Well woman exam with routine gynecological exam; Breast cancer screening by mammogram Start: 04-01-2025 End: 04-01-2025 ambulatory KARLI YEUNG Not Available Start: 04-01-2025 End: 04-01-2025 Bamboo flowsheet Karli WEST Work Phone: [facility] Start: 04-01-2025 End: 04-04-2025 Bamboo flowsheet Karli WEST Work Phone: [facility] Start: 04-01-2025 End: 04-04-2025 Clinisync Result Encounter Karli WEST Work Phone: [facility] Unsolicited Start: 07-21-2022 End: 07-22-2022 ambulatory Philly Campbellfranc [employer] Other Start: 07-21-2022 Follow-up encounter [facility] Start: 05-19-2022 End: 05-19-2022 ambulatory Horace Sauceda Other [employer] Other Start: 05-19-2022 Follow-up encounter [facility]ace [facility] Start: 03-16-2022 End: 03-16-2022 ambulatory Horace Sauceda Other [employer] Other Start: 03-16-2022 Follow-up encounter [facility] Start: 03-10-2022 End: 03-10-2022 ambulatory Horace Sauceda Other [employer] Other Start: 03-10-2022 Telephone encounter Horace [facility] Start: 02-16-2022 End: 02-16-2022 ambulatory Horace Sauceda Other [employer] Other Start: 02-16-2022 Telephone encounter [facility] Start: 02-09-2022 End: 02-09-2022 ambulatory Horace Sauceda Other [employer] Other Start: 02-09-2022 Telephone encounter [facility] Start: 01-26-2022 End: 01-26-2022 ambulatory Mattie Fitkarthikeyan Other [employer] Other Start: 01-26-2022 IBT FOR OBESITY GROU P 2-[address] [facility] Start: 01-19-2022 End: 01-19-2022 ambulatory Horace Sauceda Other [employer] Other Start: 01-19-2022 Follow-up encounter Horace Komal [facility] Start: 12-21-2021 End: 12-21-2021 ambulatory Mattie New Other [employer] Other Start: 12-21-2021 Telephone encounter Mattie Tobar [facility] Start: 12-07-2021 End: 12-07-2021 ambulatory Horace Sauceda Other [employer] Other Start: 12-07-2021 Follow-up encounter Horace Sauceda [facility] Start: 12-07-2021 Telephone encounter Horace Sauceda [facility] Start: 11-02-2021 End: 11-02-2021 ambulatory Mattie New Other [employer] Other Start: 11-02-2021 Telephone encounter Mattie Tobar [facility] Start: 10-29-2021 End: 10-29-2021 ambulatory Horace Sauceda Other [employer] Other Start: 10-29-2021 Nutrition therapy Horace Sauceda Ekaterina [facility] Start: 07-24-2021 End: 07-24-[address] DON AMEZQUITA Facility:[facility] Start: 07-19-2021 Encounter for other preprocedural examination DR DON AMEZQUITA [facility] Start: 07-14-2021 End: 07-15-[address] DON AMEZQUITA Facility:[facility] Start: 07-14-2021 End: 07-15-2021 Encounter for other preprocedural examination DR DON AMEZQUITA Facility:[facility] Start: 06-01-2021 Encounter for gynecological examination (general) (routine) without abnormal findings DR DON AMEZQUITA [facility] Start: 05-20-2021 End: 05-21-[address] DON AMEZQUITA Facility:[facility] Start: 05-20-2021 End: 05-21-2021 Encounter for gynecological examination (general) (routine) without abnormal findings DR DON AMEZQUITA Facility:[facility] Start: 05-13-2021 End: 05-13-[address] DON AMEZQUITA Facility:[facility] Procedures Date Procedure Procedure Detail Performing Clinician Start: 04-01-2025 IGP,APTIMA HPV,AGE GDLN Karli WEST Work Phone: Plan of Treatment Date Care Activity Detail Author Start: 04-07-2026 End: 04-07-2026 Patient encounter procedure 04/07/2026 3:00 PM EDT Procedure Visit [facility] [address] [place] [phone] Karli Yeung PA [address] [place] [address] [facility] Start: 04-01-2025 End: 04-01-2025 Patient encounter procedure 04/01/2025 3:00 PM EDT [facility] [address] [place] [phone] Karli Yeung PA [address] [place] [address] Arrived [facility] Comment on above: Arrived Start: 04-01-2025 End: 06-02-2026 MG Breast - bilateral Screening Bilateral screening mammogram Imaging Routine Breast cancer screening by mammogram Expected: 04/01/2025 (Approximate), Expires: 06/02/2026 [facility] Work Phone: Comment on above: Expected: 04/01/2025 (Approximate), Expires: 06/02/2026 THIN PREP TIS PAP AN D HR HPV DNA THIN PREP TIS PAP AND HR HPV DNA Pathology and Cytology Routine Well woman exam with routine gynecological exam Ordered: 04/01/2025 [facility] Comment on above: Ordered: 04/01/2025 Payers Date Payer Category Payer Self-pay [id number] 2019 Medicaid (Managed Care) [facility] MEDICAID [id number] 1984 Unknown [id number] 1984 Unknown [id number] 1984 Unknown [id number] 1984 Unknown [id number] 1984 Unknown [id number] 1959 Unknown [id number] Unknown [id number] Social History Date Type Detail Facility Unknown if ever smoked [employer] Other Sex Assigned At [employer] Other Start: 1985 Sex Assigned At Female F [facility] Tobacco smoking status AZIS Tobacco smoking consumption unknown [facility] Start: 1985 Sex assigned at Not on file [facility] Medical Equipment Procedure Code Equipment Code Equipment Origin al Text Equipment Identifier Dates Pen [place] [id number] X 5 MM Start: 02-17-2022 Clinical [...] Problems Past Medical History: Diagnosis Date Miscarriage ([facility]) HISTORY PAST MEDICAL HISTORY SOCIAL HISTORY Past Medical History: Diagnosis Date Miscarriage ([facility]) Social History Tobacco Use Smoking status: [...] nursing note reviewed. Exam conducted with a insurance healthcare consultant present. Vitals: There is no height or [...] of: JENNA Musa documented in this encounter [facility] 07-21-2022 Evaluation note Encounter Date Diagnosis Assessment Notes Jul, Hypercholesterolemia (ICD-10 - E78.00) Jul, Obesity (BMI 35.0-39.9 without comorbidity) (ICD-10 - E66.9) Jul, Snores (ICD-10 - R06.83) Jul, Depression with anxiety (ICD-10 - F41.8) Jul, Vegetarian diet (ICD-10 - Z78.9) Jul, Fatigue (ICD-10 - R53.83) Jul, Anemia (ICD-10 - D64.9) Jul, ADHD (ICD-10 - F90.9) Jul, Nicotine abuse (ICD-10 - Z72.0) [employer] Other 09-07-2022 Evaluation note* Encounter Date Diagnosis [...] May, Nicotine abuse (ICD- 10 - Z72.0) [employer] Other 07-05-2022 Evaluation note* Encounter Date Diagnosis [...] Mar, Nicotine abuse (ICD- 10 - Z72.0) [employer] Other 05-31-2022 Evaluation note* Encounter Date Diagnosis Assessment Notes Treatment Notes Treatment Clinical Notes January, Obesity (BMI 35.0-39.9 without comorbidity) (ICD-10 - E66.9) [employer] Other 05-17-2022 Evaluation note* Encounter Date Diagnosis [...] patient set personal goal using given handout. [employer] Other 05-10-2022 Evaluation note* Encounter Date Diagnosis [...] spent on education with Zulay HENDRICKS, RN. [employer] Other 03-28-2022 Evaluation note* Encounter Date Diagnosis Assessment Notes Treatment Notes Treatment Clinical Notes Nov, Depression with anxiety (ICD-10 - F41.8) Nov, Obesity (BMI 35.0-39.9 without comorbidity) (ICD-10 - E66.9) Nov, Vegetarian diet (ICD-10 - Z78.9) Nov, Snores (ICD-10 - R06.83) Nov, Fatigue (ICD-10 - R53.83) Nov, Anemia (ICD-10 - D64.9) Nov, ADHD (ICD-10 - F90.9) Nov, Nicotine abuse (ICD-10 - Z72.0) [employer] Other 02-17-2022 Evaluation note* Encounter Date Diagnosis [...] (BMI 35.0-39.9 without comorbidity) (ICD-10 - E66.9) [employer] Other 11-12-2021 NoteOPERATIVE NOTE OPERATION DATE: 07-24-21 ANESTHETIC:General. 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 PREOPERATIVE DIAGNOSIS:Menorrhagia. POSTOPERATIVE DIAGNOSIS:Same. PROCEDURE NAME: Mavis [...] All instruments were removed from the vagina. [facility] Signed and Approved by: DR DON AMEZQUITA . 07/28/2021 08:36:00[facility] [employer] Other Evaluation noteNo assessment information available [facility] Work Phone: Evaluation note* Diagnosis Acne, unspecified acne type- Primary Well woman exam with routine gynecological exam Routine gynecological examination Breast cancer screening by mammogram documented in this encounter [facility] N[facility]ative - Reported* Type Description Date Medical History chronic depression Medical History anxiety Medical History ADHD Medical History fatigue Surgical History D&C Surgical History ablasion Surgical History tubes in ears [facility] [employer] Other Summary Purpose Family History No Family History Records FoundNo Family History Records FoundNo Family History Records Found Advance Directives No Advanced Directives Records FoundNo Advanced Directives Records FoundNo Advanced Directives Records Found Reason for Referral Reason Appt: [place] of 2 0 Diagnosis 1 Fatigue (R53.83) Referral Organization [facility] Referring Provider First Name Horace Referring Provider Last Name Komal Referring Provider Specialty Internal Me dicine Referred Organization [facility] Referred Address [address] [place], [place],[address] Referred Provider Specialty Sleep Medici ne Referral Priority Routine Additional Source Comments INFORMATION SOURCE (unrecogn ized section and content) DATE CREATED AUTHOR 07/31/2021 [facility] DATE CREATED AUTHOR AUTHOR'S ORGANIZ ATION 06/18/2023 [facility] DATE CREATED AUTHOR AUTHOR'S ORGANIZ ATION 04/03/2025 [facility] EPIC REASON FOR VISIT (unrecogniz ed section and [...] BE BASED ON THE PRIMARY CLINICAL RECORDS. [facility]. provides no warranty or guarantee of the accuracy or completeness of information in this document.
[2025-06-17 15:08] LABS: Antinuclear Antibodies, IFA Positive (.)
== END 2025-06-13 16:03 | disposition home or self-care (01) ==
DX: R53.82 Chronic fatigue, unspecified (principal)
CPT/HCPCS: 36415; 86038